=== PATIENT | female | born 1945 | race Caucasian/White ===

== ENCOUNTER 2017-06-26 10:42 | Emergency (ER) | payer BC ==
[~2017-06-26] VITALS: Ht 162.6 cm; Wt 83.6 kg
[~2017-06-26 10:42] MED LIST: ADVIN25/60 INH; CETI-41 PO; CHOL400C7 PO; FURO-85 PO; GLC/500 PO; GLIP-197 PO; IPRA1AER2 INH; LEVO25TA5 PO; LORA-741 PO; MELO7.5T5 PO; PRLSR20 PO; SACC250C11 PO; SITA100T3 PO; TRAM-10 PO
[2017-06-26 11:00] VITALS: TEMP 36.7; Ht 162.6 cm; Wt 83.6 kg
[2017-06-26] MEDS ORDERED: DULA1INJ SQ (11:34)
[2017-06-26] MEDS ORDERED: MAGN400T6 PO (11:34)
[2017-06-26] MEDS ORDERED: PROPARACAINE HCL 0.5% OP SOLN 15 ML BTL ONE (11:54)
[2017-06-26] MEDS ORDERED: OXYC1TAB3 PO (12:51)
[2017-06-26] MEDS ORDERED: CLXOPO OP (12:51)
[2017-06-26 13:07] VITALS: BP 148/79; PULSE 86; O2SAT 96
--- NOTE | 2017-06-26 19:10 | EMERGENCY ROOM VISIT NOTE ---
ED Visit Note First contact with patient: 11:47 Chief Complaint: Left eye pain. History of Present Illness: Ms. Mauricio is a 71-year-old white female who ambulates into the ED accompanied by her son complaining of left eye pain. 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 And in early May of this year had a corneal scraping performed by Dr. Basilio. Patient reports that she is on a special eyedrop medication that allows her eyes to stay well-hydrated that she is supposed to use every night in addition she uses a humidifier in her bedroom during sleep. She does report last evening she forgot to use her eyedrops and her humidifier rather out of water. Additionally she reports that she had some nasal congestion yesterday and she took a pseudoephedrine. Patient reports when she awoke from sleep today she felt a tearing sensation over the left eye. Since that time she has been having severe pain within the left eye. She describes her discomfort as a burning sensation. She rates her discomfort 8/10. Her pain is nonradiating. Her pain worsens with blinking and light exposure. She has not identified any alleviating factors related to the pain. She reports she has taken some Vicodin from an old prescription and had no relief of her discomfort. Associated with her discomfort she reports that she is noted a slight blackish haze around objects that she is looking at, she had a short-lived episode of double vision in the left eye, she has had left eye tearing and light sensitivity. She denies fevers, chills, sweats any recent direct trauma to the eye, headache , vomiting, flashing lights, drawing curtains. Review of Systems: As noted above in history of present illness. At least body systems were reviewed and found to be negative as noted above. Past Medical History: As previously noted, diabetes, hypothyroidism, arrhythmias , asthma, pneumonia, kidney stones. Current Medications: Medications Dose Route/Sig Max Daily Dose Days Date Category Mag-Ox (Magnesium Oxide) 400 Mg Tab Unknown Dose PO DAILY 06/26/17 Reported Trulicity (Dulaglutide) 0.75 Mg/0.5 Ml Inj 0.5 Mg SQ WK 06/26/17 Reported Ativan (Lorazepam) 0.5 Mg Tab 0.5 Mg PO Q6H PRN 03/17/16 Reported Prilosec (Omeprazole) 20 Mg Capcr 20 Mg PO QAM 03/17/16 Reported Probiotic (Saccharomyces Boulardii) Unknown Strength Cap Unknown Dose PO QAM 03/17/16 Reported Advair Diskus 250/50 60 Dose (Fluticasone Prop/Salmeterol) Unknown Strength Aerp 1 Puff INH BID PRN 11/18/15 Reported Combivent Respimat (Ipratropium-Albuterol) 1 Aer Aer 1 Puffs INH UD PRN 11/18/15 Reported Glipizide Er (Glipizide) 5 Mg Tab 1 Tab PO BID 90 09/19/15 Reported Levothyroxine Sodium 25 Mcg Tab 1 Tab PO QAM 90 09/19/15 Reported Januvia (Sitagliptin Phosphate) 100 Mg Tab 100 Mg PO QAM 09/19/15 Reported Glucophage (Metformin Hcl) 500 Mg Tab 500 Mg PO DAILY 09/19/15 Reported Allergies to Medications: Patient denies. Social History: Patient is not employed; she feels safe in her home environment ; she denies tobacco use. Physical Examination: Vital Signs: Date Time Temp Pulse Resp B/P (MAP) Pulse Ox O2 Delivery O2 Flow Rate FiO2 06/26/17 13:07 86 18 148/79 96 06/26/17 11:00 36.7 106 22 157/84 95 Room Air GENERAL: 71-year-old female in moderate distress due to pain, nontoxic-appearing , afebrile and hemodynamically stable. NEUROLOGICAL: Awake, alert and oriented to person, place and time. Answering questions appropriately and following commands. Normal gait. Good hand eye coordination. SKIN: Warm, dry and pink. No soft tissue eruptions or trauma noted. HEENT: Atraumatic and normocephalic. PERRLA. EOMI without nystagmus. No foreign bodies noted under the eyelids are embedded in the cornea. The anterior chamber is clear. On funduscopic examination with staining patient has a large corneal abrasion over the medial aspect of the eye. It is also noted with the slit lamp examination patient has a portion of her cornea that is free moving. Sclera mildly injected on the left. Conjunctiva pink with drainage of clear tears. Visual acuity: Right 70/20 with correction, left 20/ 70 with correction. ED Course: Patient is assessed as noted above. Patient's medication list was reviewed. Alcaine was used to anesthetize the eyes for examination. Patient's case was reviewed with Dr. Stark; he independently assessed the patient we agreed on diagnostic approach, treatment, disposition and plan. Patient was educated about today's findings and instructed on her treatment plan ; she verbalizes understanding and agreement with this plan. Clinical Impression: Left corneal abrasion. Disposition: Patient discharged home in stable condition accompanied by her son ; prior to departure she was reassessed and subjectively reported she was feeling better and rated her discomfort 05/11 Plan: Patient was encouraged to continue her current medications as prescribed. Patient was prescribed OxyIR and instructed on its use; her name was checked in the state database and no red flags were noted and she was given appropriate narcotic precautions. Patient was prescribed Ciloxan ophthalmic ointment and instructed on its use. Patient was encouraged to contact Dr. Goldman in the morning and informed him of today's ED visit and request follow-up care and treatment. Patient was encouraged to return the ED for worsening/uncontrolled pain, headaches, fevers, vomiting, worsenings visual changes or any new/concerning symptoms.
== END 2017-06-26 13:08 | disposition home or self-care (01) ==
LOC: C.EDB 10:43 → C.EDD 13:08
DX: S05.02XA Injury of conjunctiva and corneal abrasion without foreign body, left eye, initial encounter (principal); X58.XXXA Exposure to other specified factors, initial encounter; H18.59 Other hereditary corneal dystrophies; E11.9 Type 2 diabetes mellitus without complications; E03.9 Hypothyroidism, unspecified; J45.909 Unspecified asthma, uncomplicated; I49.9 Cardiac arrhythmia, unspecified; Z87.442 Personal history of urinary calculi

== ENCOUNTER → 2017-09-21 | Outpatient (CLI) | payer BC ==
[~2017-09-21] MED LIST changes: -CETI-41 PO; -CHOL400C7 PO; +DULA1INJ SQ; -FURO-85 PO; +MAGN400T6 PO; -MELO7.5T5 PO; +OXYC1TAB3 PO; -TRAM-10 PO
--- NOTE | 2017-09-21 08:50 | DIAGNOSTIC IMAGING REPORT ---
KUB HISTORY: Follow-up study in a patient with history of left-sided renal calculi N20.0 [id number] COMPARISON: [facility] 04/06/2016. FINDINGS: The bowel gas pattern is non-obstructive. Moderate stool volume throughout the left hemicolon, rectum and sigmoid. Cholecystectomy clips noted. There is no organomegaly. Renal shadows, notably the left renal shadow is partially obscured by bowel gas. There is a suggested 3 mm calculus projecting over the interpolar left kidney. No ureteral calculi identified. Calcifications of the pelvis suggest phleboliths. No pneumoperitoneum or pneumatosis. No fracture. Degenerative changes of the lumbar spine, hips and pelvis. IMPRESSION: 1. Renal shadows are partially obscured by bowel gas. There is a suggested 3 mm calculus of the interpolar left kidney. No ureteral calculi identified. 2. Moderate stool volume about the left hemicolon, rectum and sigmoid. 3. Nonobstructive bowel gas pattern. 4. Prior cholecystectomy. Electronically signed by: Vishnu Campos M.D. 09/21/2017 8:49 AM Dictated Date/Time: 09/21/2017 8:47 AM
--- NOTE | 2017-09-21 10:26 | DIAGNOSTIC IMAGING REPORT ---
RENAL ULTRASOUND CLINICAL HISTORY: Nephrolithiasis. COMPARISON STUDY: KUB April 06, [address] of the abdomen and pelvis September 15, 2015. TECHNIQUE: Sonography of the kidneys and the urinary bladder was performed. FINDINGS: Incidental note is made of fatty infiltration of the liver. There is no hydronephrosis. The right kidney measures 10.7 cm in maximal dimension and the left measures 10.8 cm. Note is made of a 4 mm left renal calculus. There is mild left renal cortical thinning. Neither ureteral jet was identified. Bladder is suboptimally assessed due to underdistention. IMPRESSION: 1. No hydronephrosis. 2. 4 mm left renal calculus. Electronically signed by: Nirmal Garcia M.D. 09/21/2017 10:25 AM Dictated Date/Time: 09/21/2017 10:24 AM
== END | disposition home or self-care (01) ==
LOC: C.ULTR 08:22
PROVIDERS: ATTEND Urology
DX: N20.0 Calculus of kidney (principal)

== ENCOUNTER → 2017-12-19 | Day surgery (SDC) | payer BC ==
[2017-12-13 13:29] VITALS: Ht 163.8 cm; Wt 84.1 kg
[~2017-12-19] VITALS: Ht 163.8 cm; Wt 84.1 kg
[~2017-12-19] MED LIST changes: +500ML BSS 0.3ML EPI 1:1000PF IRRIG ONE; +ACETAMINOPHEN 325 MG TAB PO PRN; +AMVISC PLUS 0.8ML SYRINGE INT OCU ONE; +ATROPINE SULFATE 0.1 MG/ML 5ML SYR IV PRN; +BRIMONIDINE TART 0.2% OP SOLN PER DROP CHARGE ONE; +BSS FLUSH ONE; +DOXY100C76 PO; +ENDOCOAT 0.85ML SYRINGE INT OCU ONE; +EpHEDrine SULFATE INJ 50 MG/ML AMP IV PRN; +EpINEphrine INJ 1MG/ML AMP 1 MG/ML AMP ONE; -GLIP-197 PO; +GLIP1TAB61 PO; +LACTATED RINGER'S 1000ML 500 ML IV SCH; +LIDOCAINE 4% OP SOLN DROP CHARGE ONE; +LIDOCAINE 4% OP SOLN DROP CHARGE OPR SCH; +LIDOCAINE HCL 1% MPF 2 ML VIAL ONE; -MAGN400T6 PO; +MIDAZOLAM HCL 1 MG/ML 2ML VIAL ONE; +MOXIFLOXACIN OPH SOLN PER DROP CHARGE ONE; +OMEP-334 PO; -OXYC1TAB3 PO; +POVIDONE-IODINE OP SOLN 30 ML BTL ONE; -PRLSR20 PO; +PROPARACAINE 0.5% OP SOLN PER DROP CHARGE OPR SCH; +TOBRAMYCIN/DEXAMETHASONE OPH OINT PER APPLN CHARGE ONE
--- NOTE | 2017-12-19 08:44 | History & Physical Bridge - SC ---
H&P Re-Evaluation Bridge Note: I have examined the patient, reviewed the History & Physical and in the interval since the performance of the History & Physical I have noted the following changes of clinical significance: No changes noted
[2017-12-19] MEDS: PHENYLEPHRINE HCL 2.5% OP SOLN PER DROP CHARGE OPR SCH ×2 (08:57→09:09)
[2017-12-19] MEDS: TROPICAMIDE 1% OP SOLN PER DROP CHARGE OPR SCH ×2 (08:58→09:10)
[2017-12-19] MEDS: CYCLOPENTOLATE HCL 1% OP SOLN PER DROP CHARGE OPR SCH ×2 (08:59→09:11)
[2017-12-19] MEDS: KETOROLAC 0.5% OP SOLN PER DROP CHARGE OPR SCH ×2 (09:00→09:12)
[2017-12-19] MEDS: MOXIFLOXACIN OPH SOLN PER DROP CHARGE OPR SCH ×2 (09:01→09:13)
--- NOTE | 2017-12-19 09:47 | [facility] Operative Report ---
Operative Report Operative Date Dec 19, 2017. Pre-Operative Diagnosis Cataract Right Eye Post-Operative Diagnosis Same as Pre op Procedure(s) Performed Right Cataract Phacoemulsification With Intraocular Lens Implant Surgeon Dr. Basilio Ruby On Rails Web Developer Surgeon(s) None Estimated Blood Loss 0ml Findings cataract right eye Specimens None Drains None Anesthesia Type MAC Complication(s) none Disposition no Recovery Room / PACU Indications decreased vision right eye Description of Procedure After informed consent was obtained in the holding area the patient was wheeled back to the operating room where cardiac monitoring leads and oxygen by nasal cannula was administered by Anesthesia. Gentle IV sedation was given, and the patient's right eye was prepped and draped in usual sterile fashion. A wire lid speculum was placed into the right eye and the operating microscope was swung into position. Using 0.12 forceps and a Supersharp blade a paracentesis port was made 2 o'clock hours away from the 9 o'clock position of the patient's right eye. 1% non-preserved Lidocaine was then injected into the anterior chamber for anesthesia. A 2.0 mm keratotome blade was then used to make a shelved clear corneal incision at the 9 o'clock position of the right eye. Amvisc was injected into the anterior chamber and a cystotome and Utrata forceps were used to perform a curvilinear capsulorrhexis. BSS on a hydrodissection cannula was used to hydrodissect the lens nucleus away from the capsular bag. The phacoemulsification handpiece was then used in a stop and chop fashion to remove the lens nucleus. The irrigation and aspiration handpiece was then used to remove the residual cortical material. Amvisc was injected into the capsular bag and anterior chamber and a Bausch [employer] Lomb MX60E 27.5 Diopter intraocular lens was injected into the capsular bag. Irrigation and aspiration handpiece was used to remove the residual viscoelastic material. The wounds were hydrated and noted to be watertight. The wire lid speculum was removed from the eye. Vigamox, Brimonidine, and TobraDex ointment were placed on the eye and it was shielded. It should be noted that EndoCoat was used extensively during the case to protect the cornea endothelium. DISPOSITION: The patient tolerated the procedure well and was wheeled to the post anesthesia care unit in stable condition. I attest to the content of the Intraoperative Record and any orders documented therein. Any exceptions are noted below. I attest to the content of the Intraoperative Record and any orders documented therein. Any exceptions are noted below.
--- NOTE | 2017-12-19 09:49 | Discharge Instructions-SurgCtr ---
Discharge Instructions Date of Service Dec 19, 2017. Visit Reason for Visit: Right Cataract Discharge Discharge Diagnosis / Problem: cataract right eye Discharge Goals Goal(s): Improve function Activity Recommendations Activity Limitations: per Instructions/Follow-up section Lifting Limitations: no more than 5 pounds Anesthesia . Post Anesthesia Instructions: If you have had General Anesthesia or IV Sedation: * Do not drive today. * Resume driving when surgeon permits. * Do not make important decisions or sign legal documents today. * Call surgeon for: 1. Temperature elevations greater than 101 degrees F. 2. Uncontrollable pain. 3. Excessive bleeding. 4. Persistent nausea and vomiting. 5. Medication intolerance (nausea, vomiting or rash). * For nausea and vomiting use only clear liquids such as: tea, soda, bouillon until nausea subsides, then gradually increase diet as tolerated. * If you have any concerns or questions, call your surgeon's office. If physician is unavailable and it is an emergency, call 911 or go to the nearest emergency room. . Instructions / Follow-Up Instructions / Follow-Up ACTIVITY RECOMMENDATIONS: * Light activities * You may walk outside, read, watch television. * Mild irritation and blurred vision are common for the first few days, redness around the white part of the eye is common. MEDICATIONS: Resume previous medications unless instructed otherwise by your surgeon. Eye drops (today and tomorrow): Gatifloxacin - one drop in operative eye every 2 hours while awake Prednisolone 1% - one drop in operative eye every 2 hours while awake Bromfenac - one drop in operative eye once daily SPECIAL CARE INSTRUCTIONS: * If any problems or concerns, please call Dr. Basilio's office at . * Keep plastic shield taped over eye to sleep at night. * Keep plastic shield taped over eye except to administer eye drops. * Keep plastic shield on until office visit the following day. FOLLOW UP VISIT: Follow-up with Dr. Basilio in the [place] office as scheduled. If not already scheduled, please call the office at . Diet Recommendations Home Diet: resume previous diet Procedures Procedures Performed: Right Cataract Phacoemulsification With Intraocular Lens Implant Pending Studies Studies pending at discharge: no Medical Emergencies . Who to Call and When: Medical Emergencies: If at any time you feel your situation is an emergency, please call 911 immediately. . Non-Emergent Contact Non-Emergency issues call your: Php Mysql Web Developer . . "Provider Documentation" section prepared by Praful Basilio. .
[2017-12-19 09:52] VITALS: TEMP 36.4
[2017-12-19 10:14] VITALS: BP 124/77; PULSE 84; O2SAT 94
--- NOTE | 2017-12-19 10:19 | Anesthesia Progress Nt - [facility] ---
Anesthesia Post Op Note Date & Time Dec 19, 2017 at 10:19 Vital Signs Pain Intensity: 0 Vital Signs Past 12 Hours Date Time Temp Pulse Resp B/P (MAP) Pulse Ox O2 Delivery O2 Flow Rate FiO2 12/19/17 10:14 84 16 124/77 (93) 94 Room Air 12/19/17 09:52 36.4 83 12 134/75 (94) 94 Room Air 12/19/17 08:31 36.9 80 18 142/82 (102) 94 Room Air Notes Mental Status: alert / awake / arousable, participated in evaluation Nausea / Vomiting: adequately controlled Pain: adequately controlled Airway Patency, RR, SpO2: stable & adequate BP & HR: stable & adequate Hydration State: stable & adequate Anesthetic Complications: no major complications apparent
== END | disposition home or self-care (01) ==
LOC: X.SURG 08:20
PROVIDERS: ATTEND Ophthalmology
DX: H25.11 Age-related nuclear cataract, right eye (principal); K21.9 Gastro-esophageal reflux disease without esophagitis; E11.9 Type 2 diabetes mellitus without complications; E66.9 Obesity, unspecified; Z68.31 Body mass index [BMI] 31.0-31.9, adult; Z90.710 Acquired absence of both cervix and uterus; Z90.49 Acquired absence of other specified parts of digestive tract

== ENCOUNTER 2018-12-29 15:20 | Observation (INO) ==
[~2018-12-29 15:20] MED LIST changes: -500ML BSS 0.3ML EPI 1:1000PF IRRIG ONE; -ACETAMINOPHEN 325 MG TAB PO PRN; -ADVIN25/60 INH; -AMVISC PLUS 0.8ML SYRINGE INT OCU ONE; -ATROPINE SULFATE 0.1 MG/ML 5ML SYR IV PRN; -BRIMONIDINE TART 0.2% OP SOLN PER DROP CHARGE ONE; -BSS FLUSH ONE; -DOXY100C76 PO; -DULA1INJ SQ; -ENDOCOAT 0.85ML SYRINGE INT OCU ONE; -EpHEDrine SULFATE INJ 50 MG/ML AMP IV PRN; -EpINEphrine INJ 1MG/ML AMP 1 MG/ML AMP ONE; -GLC/500 PO; -GLIP1TAB61 PO; -IPRA1AER2 INH; -LACTATED RINGER'S 1000ML 500 ML IV SCH; -LEVO25TA5 PO; -LIDOCAINE 4% OP SOLN DROP CHARGE ONE; -LIDOCAINE 4% OP SOLN DROP CHARGE OPR SCH; -LIDOCAINE HCL 1% MPF 2 ML VIAL ONE; -LORA-741 PO; -MIDAZOLAM HCL 1 MG/ML 2ML VIAL ONE; -MOXIFLOXACIN OPH SOLN PER DROP CHARGE ONE; -OMEP-334 PO; +OPTIRAY 320 125ml IV PRN; -POVIDONE-IODINE OP SOLN 30 ML BTL ONE; -PROPARACAINE 0.5% OP SOLN PER DROP CHARGE OPR SCH; -SACC250C11 PO; -SITA100T3 PO; -TOBRAMYCIN/DEXAMETHASONE OPH OINT PER APPLN CHARGE ONE
[2018-12-29] MEDS ORDERED: LORazepam 2 MG/4 ML VIAL ONE (15:30)
[2018-12-29] MEDS ORDERED: SODIUM CHLORIDE 0.9% 1000ML 1,000 ML IV SCH (15:30)
--- NOTE | 2018-12-29 15:35 | CT Scan Report ---
CT head/brain wo con CT DOSE: HISTORY: Mental status change Stroke evaluation TECHNIQUE: Multiaxial CT images of the head were performed without the use of intravenous contrast. A dose lowering technique was utilized adhering to the principles of ALARA. Comparison: None. Findings: Moderate fluid within the sphenoid sinus. The calvarium and skull base are intact. The vent ricles and sulci are within normal limits. There is no mass, hematoma, midline shift, or acute infarc t. Age-related atrophy and chronic small vessel change Impression: No acute intracranial abnormality. Age-related atrophy and chronic small vessel change. Sphenoid sinu sitis. The above report was generated using voice recognition software. It may contain grammatical, syntax or spelling errors. Electronically signed by: Destin Sen M.D. 12/29/2018 3:34 PM
--- NOTE | 2018-12-29 15:37 | CT Scan Report ---
CT angio head w con HISTORY: Mental status change cva TECHNIQUE: Multiaxial CT angiography of the head was performed IV contrast: 50 cc Maximum intensit y projection images were also obtained. A dose lowering technique was utilized adhering to the princ iplsarah of MAJO. COMPARISON: None. FINDINGS: There is no mass, hematoma, midline shift, or acute infarct. Visualized intracranial general internist al carotid arteries, distal vertebral arteries, and basilar artery are widely patent. There is no sig nificant stenosis, occlusion, or aneurysm seen within the bilateral ACAs, MCAs, or fiberglass boat assembly supervisor. IMPRESSION: No significant stenosis, occlusion, or aneurysm within the pala of [place]. The above report was generated using voice recognition software. It may contain grammatical, syntax or spelling errors. Electronically signed by: Destin Sen M.D. 12/29/2018 3:36 PM
--- NOTE | 2018-12-29 15:41 | CT Scan Report ---
CT angio neck with con CLINICAL HISTORY: 73 years-old Female presenting with cva. TECHNIQUE: Multidetector CT angiography of the neck was performed after the administration of intrave nous contrast. 3-D volumetric and/or maximum intensity projection (MIP) images were subsequently dot nstructed for review. IV contrast: 119 mL of Optiray 320. One or more dose lowering techniques were u sed consistent with the principles of ALARA (as low as reasonably achievable), including automatic ex posure control, mA or kV adjustment to individual patient size, and/or use of iterative reconstructio n. Stenosis measurements were based on NASCET-like criteria (distal lumen diameter as the denominator for stenosis measurement). COMPARISON: None. CT DOSE (mGy.cm): The estimated cumulative dose is 1142.72. FINDINGS: Director Of Aviation topogram: Unremarkable. Aortic arch: Atherosclerosis of the three-vessel aortic arch with patent origins of the branch vessel s. Innominate artery: Patent. Right subclavian artery: Patent. Right common carotid artery: Patent. Right internal and external carotid arteries: Calcified atherosclerotic plaque at the carotid bifurca tion predominantly affecting the origin the proximal course of the right internal carotid artery. No significant resulting stenosis. External carotid artery widely patent. Left common carotid artery: Patent. Left internal and external carotid arteries: Left degree of calcified atherosclerotic plaque at the c arotid bifurcation and origin and proximal course of the internal carotid artery without evidence of narrowing. External carotid artery also widely patent. Left subclavian artery: Patent. Vertebral arteries: Codominant vertebral arteries. Origins and courses of the bilateral vertebral art eries patent. Other: Limited intracranial evaluation within normal limits. Mucosal thickening in the sphenoid sinus . Soft tissues of the neck within normal limits. Degenerative changes of the cervical spine. Lung api dave clear. IMPRESSION: 1. Atherosclerosis without evidence of dissection, focal vessel occlusion, or significant stenosis o f the cervical arteries. Electronically signed by: Hugo Reynolds M.D. 12/29/2018 3:39 PM
[2018-12-29] MEDS ORDERED: LABETALOL HCL IV 5 MG/ML 20ML IV STA ×2 (15:47→16:09)
[2018-12-29 15:48] LABS: Basophils # (auto) 0.03 K/uL (0-0.2); Basophils % (auto) 0.3 %; Eosinophils # (auto) 0.36 K/uL (0-0.5); Hematocrit (blood only) 36.5 % (37-47); Hemoglobin 12.4 g/dL (12.0-16.0); Immature Granulocytes # (auto) 0.03 K/uL (0.00-0.02); Immature Granulocytes % (auto) 0.3 %; Mean Corpuscular Hemoglobin 30.4 pg (25-34); Mean Corpuscular Volume 89.5 fL (80-100); Mean Platelet Volume 9.9 fL (7.4-10.4); Monocytes % (auto) 6.7 %; Neutrophils # (auto) 4.53 K/uL (1.4-6.5); Neutrophils % (auto) 50.7 %; Platelet Count 227 K/uL (130-400); RDW Coefficient of Variation 13.3 % (11.5-14.5); RDW Standard Deviation 43.6 fL (36.4-46.3); Red Blood Count 4.08 M/uL (4.2-5.4); White Blood Count 8.95 K/uL (4.8-10.8)
[2018-12-29 15:51] LABS: iSTAT Creatinine 0.7 mg/dl (0.6-1.3); iSTAT Hemoglobin 11.6 g/dl (12.0-16.0); iSTAT Ionized Calcium 1.1 mmol/l (1.12-1.32); iSTAT Potassium 3.6 mEq/L (3.3-5.0)
--- NOTE | 2018-12-29 15:51 | XRay Report ---
XR chest 1V portable CLINICAL HISTORY: cva mental status change COMPARISON STUDY: 02/27/2018 FINDINGS: The bones soft tissues and hemidiaphragms are normal. The cardiomediastinal silhouette is n ormal. The lungs are clear. The pulmonary vasculature is normal. IMPRESSION: Negative chest. The above report was generated using voice recognition software. It may contain grammatical, syntax or spelling errors. Electronically signed by: Destin Sen M.D. 12/29/2018 3:49 PM
[2018-12-29] MEDS ORDERED: TPA for Stroke IV STA (15:55)
[2018-12-29 15:59] LABS: INR 1.1 (0.9-1.1); Partial Thromboplastin Time 26.5 Seconds (21.0-31.0); Prothrombin Time 11.2 Seconds (9.0-12.0)
[2018-12-29 16:05] LABS: Appearance Urine Clear (Clear); Bilirubin Urine Negative (Negative); Blood Urine Negative (Negative); Color Urine Yellow; Glucose Urine UA Negative (Negative); Ketones Urine Negative (Negative); Leukocyte Esterase Urine Negative (Negative); Nitrite Urine Negative (Negative); Protein Urine Negative (Negative); Specific Gravity Urine 1.014 (1.000-1.030); Urobilinogen Urine Negative (Negative)
[2018-12-29] MEDS ORDERED: ALTEPLASE BOLUS IV ONE (16:05)
[2018-12-29] MEDS ORDERED: RECOMBINANT IV ONE (16:06)
[2018-12-29] MEDS ORDERED: ALTEPLASE IV ONE (16:06)
[2018-12-29] MEDS ORDERED: PRIMARY PLUMSET, PE LINED TUBING, 113 IN, NON-DEHP (2260-0500) IV ONE (16:06)
[2018-12-29 16:22] LABS: Alanine Aminotransferase 16 U/L (12-78); Albumin Level 3.2 gm/dl (3.4-5.0); Aspartate Aminotransferase 16 U/L (15-37); BUN Creatinine Ratio 13.5 (10-20); Blood Urea Nitrogen 12 mg/dl (7-18); Calcium 8.7 mg/dl (8.5-10.1); Carbon Dioxide 25 mmol/L (21-32); Chloride 107 mmol/L (98-107); Creatinine Clr Calc Pharmacy 60.3 ml/min; Est GFR (African American) 76.6; Est GFR (Non-African American) 66.1; Glucose 161 mg/dl (70-99); Magnesium 1.8 mg/dl (1.8-2.4); Potassium 3.6 mmol/L (3.5-5.1); Sodium 139 mmol/L (136-145)
[2018-12-29 16:26] LABS: Albumin Globulin Ratio 0.9 (0.9-2); Alkaline Phosphatase 80 U/L (45-117); Bilirubin,Total 0.5 mg/dl (0.2-1); Globulin 3.5 gm/dl (2.5-4.0); Total Protein 6.7 gm/dl (6.4-8.2); Troponin I < 0.015 ng/ml (0-0.045)
--- NOTE | 2018-12-29 16:49 | Emergency Department Note ---
Entered by Shani Lloyd acting as a scribe for Steve Hines DO History of Present Illness General Chief complaint: Stroke Alert Stated complaint: STROKE ALERT Time Seen by Provider: 12/29/18 15:32 Source: patient and family History of Present Illness Onset (ago): hour(s) 2 Location: head Pain Consistency: + other (episode) Quality: + other (stroke alert) Associated symptoms: + denies other symptoms (abdominal pain, acting unusual), + weakness (right sided) and + other (difficulty speaking, head feeling numb, shaking, difficulty seeing); no headaches The patient is a 73 year old female who presents to the Emergency Room with complaints of an episode of stroke alert symptoms starting 2 hours ago. The patients son states that this afternoon he was on the phone with his mother for about an hour. He states that hung up with her around 1330 and at the time everything was normal. He reports that he got on a conference call and at 1354 she called home back. He states that that time she was speaking slowly. He reports the he couldnt understand what she was saying and it made sense, but it took her a long time to comprehend and respond. He reports that he immediately called 911. He notes that in the time they were not on the phone, she had called her uncle and had noticed herself repeating herself on the phone with him. He notes that she currently seems out of it. He reports that she lives alone and takes care of herself. He states that she even drove her granddaughters laptop to school to her this morning and was fine. The patient complains of her head feeling numb, right sided weakness, shaking, and difficulty seeing. The patients son notes that within the last 8 months, the patient had a halter monitor on for several day. He denies anything being found from it and the p atient having any cardiac history. He denies the patient having any complaints and acting unusual the last few days. The patient denies a headache and abdominal pain. Home Medications Home Medications Medication Instructions Recorded Confirmed Type Combivent Respimat 1 puff INHALATION QID PRN 03/02/18 12/29/18 History Januvia 100 mg PO QAM 03/02/18 12/29/18 History Probiotic 1 cap PO QAM 03/02/18 12/29/18 History Trulicity 1 dose SUBCUT WK 03/02/18 12/29/18 History acetaminophen 1 - 2 tab PO Q6H PRN 03/02/18 12/29/18 History lorazepam [Ativan] 0.5 mg PO Q6H PRN 03/02/18 12/29/18 History omeprazole 40 mg PO QAM 03/02/18 12/29/18 History glipizide [Glucotrol] 5 mg PO DAILY 12/29/18 12/29/18 History ibuprofen 400 - 600 mg PO TID PRN 12/29/18 12/29/18 History propylene glycol [Systane Complete] 1 drp OPHTHALMIC (EYE) BID PRN 12/29/18 12/29/18 History ranitidine HCl [Zantac] 150 mg PO BID PRN 12/29/18 12/29/18 History sodium chloride [Kerrie 128] 1 applic OPB HS 12/29/18 12/29/18 History Allergies Allergy/AdvReac Type Severity Reaction Status Date / Time No Known Allergies Allergy Unverified 12/29/18 17:25 Past Med/Surg History Medical History Anxiety Bronchitis INHALER USED WITH BRONCHITIS Bulging disc NO CURRENT PROBLEMS Diabetes mellitus, type 2 Endometriosis Fatty liver GERD (gastroesophageal reflux disease) Hypothyroidism Kidney stones Osteoarthritis Sciatica Sepsis RELATED TO KIDNEY STONES Tachycardia "CAUSED BY MEDICATION" NO LONGER A PROBLEM Surgical History History of appendectomy History of bilateral tubal ligation History of cardiac cath DONE 2/2 + STRESS TEST, NO SIGNIFICANT CAD PER CATH History of cataract surgery RT/LEFT History of cholecystectomy History of colonoscopy History of cystoscopy WITH STENT INSERTIONS History of dilatation and curettage History of esophagogastroduodenoscopy (EGD) History of hysterectomy History of lithotripsy History of repair of rotator cuff RT History of tooth extraction Family History Grandmother Family history of diabetes mellitus Social History Preferred Language: Guamanian Communication Ability: Effective Visual Impairment: No Limitations Cancer Program Coordinator Required: No Beliefs That Will Affect Care: None marital status: / Current Living Situation: Alone current occupational status: retired Feels Safe at Home: Yes Smoking Status: Never smoker Second Hand Exposure: No ; Hx Alcohol Use: No Hx Substance Use: No Review of Systems See HPI for pertinent positives & negatives. and A total of 10 systems reviewed and were otherwise negative Physical Exam Vital Signs Vital Signs - 24 hr 12/29/18 15:33 12/29/18 15:40 12/29/18 15:46 Temperature 36.7 C Temperature Source Oral Sepsis Recent Fever Within 48 Hours No Sepsis New/Unexplained Change in Mental Status No Sepsis Action Taken by Nursing No Action Required Pulse Rate 94 H 91 H 94 H Pulse Rate from SpO2 Sensor 94 H Pulse Rhythm Regular Pulse Strength Normal Respiratory Rate 24 18 24 Respiratory Effort / Characteristics Non-Labored Respiratory Depth Normal Respiratory Pattern Regular Blood Pressure 124/103 H 211/135 H Blood Pressure Mean 110 160 Pulse Oximetry 97 97 Oxygen Delivery Method Room Air 12/29/18 15:56 12/29/18 16:01 12/29/18 16:06 Temperature Temperature Source Sepsis Recent Fever Within 48 Hours Sepsis New/Unexplained Change in Mental Status Sepsis Action Taken by Nursing Pulse Rate 97 H 112 H 100 H Pulse Rate from SpO2 Sensor 98 H 102 H 101 H Pulse Rhythm Pulse Strength Respiratory Rate 20 21 19 Respiratory Effort / Characteristics Respiratory Depth Respiratory Pattern Blood Pressure 211/106 H 182/116 H 192/116 H Blood Pressure Mean 141 138 141 Pulse Oximetry 94 96 92 Oxygen Delivery Method 12/29/18 16:11 12/29/18 16:14 12/29/18 16:15 Temperature Temperature Source Sepsis Recent Fever Within 48 Hours Sepsis New/Unexplained Change in Mental Status Sepsis Action Taken by Nursing Pulse Rate 98 H 108 H 92 H Pulse Rate from SpO2 Sensor 95 H 101 H 86 Pulse Rhythm Pulse Strength Respiratory Rate 19 16 23 Respiratory Effort / Characteristics Respiratory Depth Respiratory Pattern Blood Pressure 202/140 H 198/116 H 191/116 H Blood Pressure Mean 160 143 141 Pulse Oximetry 92 95 95 Oxygen Delivery Method 12/29/18 16:19 12/29/18 16:20 12/29/18 16:25 Temperature Temperature Source Sepsis Recent Fever Within 48 Hours Sepsis New/Unexplained Change in Mental Status Sepsis Action Taken by Nursing Pulse Rate 90 85 88 Pulse Rate from SpO2 Sensor 88 85 88 Pulse Rhythm Pulse Strength Respiratory Rate 16 24 23 Respiratory Effort / Characteristics Respiratory Depth Respiratory Pattern Blood Pressure 183/131 H 171/98 H 182/100 H Blood Pressure Mean 148 122 127 Pulse Oximetry 91 95 91 Oxygen Delivery Method 12/29/18 16:31 12/29/18 16:35 12/29/18 16:40 Temperature Temperature Source Sepsis Recent Fever Within 48 Hours Sepsis New/Unexplained Change in Mental Status Sepsis Action Taken by Nursing Pulse Rate 86 90 92 H Pulse Rate from SpO2 Sensor 85 86 93 H Pulse Rhythm Pulse Strength Respiratory Rate 19 16 16 Respiratory Effort / Characteristics Respiratory Depth Respiratory Pattern Blood Pressure 143/108 H 143/84 H 174/97 H Blood Pressure Mean 119 103 122 Pulse Oximetry 91 91 95 Oxygen Delivery Method 12/29/18 16:45 12/29/18 17:00 12/29/18 17:05 Temperature Temperature Source Sepsis Recent Fever Within 48 Hours Sepsis New/Unexplained Change in Mental Status Sepsis Action Taken by Nursing Pulse Rate 86 81 Pulse Rate from SpO2 Sensor 86 81 Pulse Rhythm Pulse Strength Respiratory Rate 18 16 Respiratory Effort / Characteristics Respiratory Depth Respiratory Pattern Blood Pressure 173/107 H 151/91 H 153/85 H Blood Pressure Mean 129 111 107 Pulse Oximetry 95 92 Oxygen Delivery Method 12/29/18 17:10 12/29/18 17:15 Temperature Temperature Source Sepsis Recent Fever Within 48 Hours Sepsis New/Unexplained Change in Mental Status Sepsis Action Taken by Nursing Pulse Rate 83 84 Pulse Rate from SpO2 Sensor 82 86 Pulse Rhythm Pulse Strength Respiratory Rate 21 13 Respiratory Effort / Characteristics Respiratory Depth Respiratory Pattern Blood Pressure 167/107 H 156/91 H Blood Pressure Mean 127 112 Pulse Oximetry 94 93 Oxygen Delivery Method GENERAL: Patient is awake and alert. She is somewhat anxious appearing. She is looking around the room. She follows commands slowly. EYES: The conjunctivae are clear. The pupils are round and reactive. EARS, NOSE, MOUTH AND THROAT: The nose is without any evidence of any deformity. Mucous membranes are moist tongue is midline NECK: The neck is nontender and supple. RESPIRATORY: Normal respiratory effort is noted there is no evidence of wheezing rhonchi or rales CARDIOVASCULAR: Regular rate and rhythm noted there no murmurs rubs or gallops normal S1 normal S2 GASTROINTESTINAL: The abdomen is soft. Bowel sounds are present in all quadrants. Abdomen is nontender MUSCULOSKELETAL/EXTREMITIES: There is no evidence of gross deformity full range of motion is noted in the hips and shoulders SKIN: There is no obvious evidence of any rash. Trace pedal edema was noted bilaterally. NEUROLOGIC: Patient is awake and alert. She does look around the room. She an swers questions slowly and her speech is pressured. There is no facial droop noted. Patient has a tremor in her right upper extremity. The patient is able to hold each leg off the bed for 5 seconds. There is no significant drift. Patient does have some diminished card assembler strength in the right compared to the left. NIH stroke scale score of 6. Course 1522: Past medical records reviewed. The patient was evaluated in room B1. The patient was immediately sent to CT. 1531: The patient returned fro CT. A complete history and physical exam was performed. 1543: I discussed the patient's case with Dr. Christo Tomas Neurology. She will evaluate the patient via the telestroke. 1554: Dr. Wallace is currently evaluating the patient on the telestroke. 1613: I discussed the patient's case with Dr. Wallace again. She recommends no TPA at this time as it seems her symptoms are resolving. She does recommends admission for further testing, including an MRI of the brain. 1617: I reevaluated the patient and updated her and her family on her test results. I discussed the treatment plan with them. They verbally agree and understand. 1620: I discussed the patient's case with [facility]ushil [facility] at this time. She would like an MRI of the patient done to determine the next course of action. She will evaluate the patient for further management. 1645: Nursing staff called and thought the patient was having difficulty spe aking again. I am ordering a second CT at this time. 1718: I reevaluated the patient and her symptoms are improving. She is speaking clearly now. She states "I still don't feel right." She is going to MRI soon. Consultations Consultation #1: I discussed the patient's case with Dr. Christo Tomas Neurology. She will evaluate the patient via the telestroke. Time: 15:43 Consultation #2: I discussed the patient's case with Dr. Wallace again. She recommends no TPA at this time as it seems her symptoms are resolving. She does recommends admission for further testing, including an MRI of the brain. Time: 16:13 Consultation #3: I discussed the patient's case with Dr. Sushil [facility] at this time. She would like an MRI of the patient done to determine the next course of action. She will evaluate the patient for further management. Time: 16:20 Administered Medications Sodium Chloride (Nss 1000ml) 1,000 mls @ 50 mls/hr IV .Q20H RIKKI Stop: 01/28/19 15:29 Last Admin: 12/29/18 15:55 Dose: 50 mls/hr Documented by: [id number] Ioversol (Optiray 320 125ml) 119 ml IV ONCE PRN PRN Reason: Interaction Checking Stop: 01/02/19 15:19 Last Admin: 12/29/18 15:21 Dose: 119 ml Documented by: [id number] Discontinued Medications Alteplase, Recombinant (Activase For Stroke) 1 ea IV NOW STA; Protocol Stop: 12/29/18 15:56 Last Admin: 12/29/18 16:24 Dose: Not Given Documented by: [id number] Levetiracetam 1,000 mg/ (Dextrose) 110 mls @ 440 mls/hr IV NOW STA Stop: 12/29/18 15:46 Last Infusion: 12/29/18 16:25 Dose: 0 mls/hr Documented by: [id number] Admin: 12/29/18 15:55 Dose: 440 mls/hr Documented by: [id number] Alteplase, Recombinant 6.6 mg/ (Syringe) 6.6 mls @ 6.6 mls/min IV ONCE ONE Stop: 12/29/18 16:06 Last Admin: 12/29/18 16:24 Dose: Not Given Documented by: [id number] Alteplase, Recombinant 59 mg/ (EMPTY BAG) 59 mls @ 59 mls/hr IV ONCE ONE Stop: 12/29/18 16:07 Last Admin: 12/29/18 16:24 Dose: Not Given Documented by: [id number] Lorazepam (Ativan) 1 mg in 2 mls @ 2 mls/min IV NOW STA Stop: 12/29/18 17:01 Last Admin: 12/29/18 17:16 Dose: 2 mls/min Documented by: [id number] Labetalol HCl (Normodyne) 10 mg IV NOW STA Stop: 12/29/18 15:48 Last Admin: 12/29/18 15:51 Dose: 10 mg Documented by: [id number] Cosigned by: [id number] Labetalol HCl (Normodyne) 10 mg IV NOW STA Stop: 12/29/18 16:10 Last Admin: 12/29/18 16:11 Dose: 10 mg Documented by: [id number] Cosigned by: [id number] Lorazepam (Ativan) Confirm Administered Dose 2 mg .ROUTE .STK-MED ONE Stop: 12/29/18 15:31 Last Admin: 12/29/18 16:09 Dose: Not Given Documented by: [id number] Medical Decision Making Differential Diagnosis Differential Diagnosis includes but is not limited to ischemic Stroke, hemorrhagic stroke, bells palsy, mass, neoplasm, migraine headache, seizure, subarachnoid hemorrhage, TIA, and transient global amnesia. Medical Records Attestation: I reviewed the patient's medical records. Home Medications Current Medication List: was personally reviewed by me Laboratory Data Attestation: I reviewed the patient's lab results. Result diagrams: 12/29/18 15:37 12/29/18 15:37 Lab Results 12/29/18 12/29/18 12/29/18 Range/Units 15:37 15:37 15:37 WBC 8.95 (4.8-10.8) K/uL RBC 4.08 L (4.2-5.4) M/uL Hgb 12.4 (12.0-16.0) g/dL POC Hgb (12.0-16.0) g/dl Hct 36.5 L (37-47) % POC Hct (37-47) % MCV 89.5 (80-100) fL MCH 30.4 (25-34) pg MCHC 34.0 (32-36) g/dL RDW Std Deviation 43.6 (36.4-46.3) fL RDW Coeff of Richie 13.3 (11.5-14.5) % Plt Count 227 (130-400) K/uL MPV 9.9 (7.4-10.4) fL Immature Gran % (Auto) 0.3 % Neut % (Auto) 50.7 % Lymph % (Auto) 38.0 % [place]isco[place] % (Auto) 6.7 % Eos % (Auto) 4.0 % Baso % (Auto) 0.3 % Immature Gran # (Auto) 0.03 H (0.00-0.02) K/uL Neut # (Auto) 4.53 (1.4-6.5) K/uL Lymph # (Auto) 3.40 (1.2-3.4) K/uL [place] # (Auto) 0.60 H (0.11-0.59) K/uL Eos # (Auto) 0.36 (0-0.5) K/uL Baso # (Auto) 0.03 (0-0.2) K/uL PT 11.2 (9.0-12.0) Seconds INR 1.1 (0.9-1.1) APTT 26.5 (21.0-31.0) Seconds PTT Ratio 1.0 POC Sodium (135-144) mEq/L Sodium 139 (136-145) mmol/L POC Potassium (3.3-5.0) mEq/L Potassium 3.6 (3.5-5.1) mmol/L POC Chloride (101-112) mEq/L Chloride 107 (98-107) mmol/L Carbon Dioxide 25 (21-32) mmol/L POC Total CO2 (24-31) mEq/l Anion Gap 7.0 (3-11) POC Anion Gap (16-25) mmol/L POC BUN (7-18) mg/dl BUN 12 (7-18) mg/dl Creatinine 0.86 (0.6-1.2) mg/dl POC Creatinine (0.6-1.3) mg/dl Est Cr Clr Drug Dosing 60.3 ml/min Est GFR ( Amer) 76.6 Est GFR (Non-Af Amer) 66.1 BUN/Creatinine Ratio 13.5 (10-20) Glucose 161 H (70-99) mg/dl POC Glucose (other) (70-99) mg/dl Calcium 8.7 (8.5-10.1) mg/dl POC Ioniz Calcium Manisha (1.12-1.32) mmol/l Magnesium 1.8 (1.8-2.4) mg/dl Total Bilirubin 0.5 (0.2-1) mg/dl AST 16 (15-37) U/L ALT 16 (12-78) U/L Alkaline Phosphatase 80 (45-117) U/L Troponin I < 0.015 (0-0.045) ng/ml Total Protein 6.7 (6.4-8.2) gm/dl Albumin 3.2 L (3.4-5.0) gm/dl Globulin 3.5 (2.5-4.0) gm/dl Albumin/Globulin Ratio 0.9 (0.9-2) Urine Color Urine Appearance (Clear) Urine pH (4.5-7.5) Ur Specific [place] (1.000-1.030) Urine Protein (Negative) Urine Glucose (UA) (Negative) Urine Ketones (Negative) Urine Blood (Negative) Urine Nitrite (Negative) Urine Bilirubin (Negative) Urine Urobilinogen (Negative) Ur Leukocyte Esterase (Negative) 12/29/18 12/29/18 Range/Units 15:37 15:40 WBC (4.8-10.8) K/uL RBC (4.2-5.4) M/uL Hgb (12.0-16.0) g/dL POC Hgb 11.6 L (12.0-16.0) g/dl Hct (37-47) % POC Hct 34 L (37-47) % MCV (80-100) fL MCH (25-34) pg MCHC (32-36) g/dL RDW Std Deviation (36.4-46.3) fL RDW Coeff of Richie (11.5-14.5) % Plt Count (130-400) K/uL MPV (7.4-10.4) fL Immature Gran % (Auto) % Neut % (Auto) % Lymph % (Auto) % [place]iscoe % (Auto) % Eos % (Auto) % Baso % (Auto) % Immature Gran # (Auto) (0.00-0.02) K/uL Neut # (Auto) (1.4-6.5) K/uL Lymph # (Auto) (1.2-3.4) K/uL [place]iscoe # (Auto) (0.11-0.59) K/uL Eos # (Auto) (0-0.5) K/uL Baso # (Auto) (0-0.2) K/uL PT (9.0-12.0) Seconds INR (0.9-1.1) APTT (21.0-31.0) Seconds PTT Ratio POC Sodium 138 (135-144) mEq/L Sodium (136-145) mmol/L POC Potassium 3.6 (3.3-5.0) mEq/L Potassium (3.5-5.1) mmol/L POC Chloride 102 (101-112) mEq/L Chloride (98-107) mmol/L Carbon Dioxide (21-32) mmol/L POC Total CO2 23 L (24-31) mEq/l Anion Gap (3-11) POC Anion Gap 18.0 (16-25) mmol/L POC BUN 11 (7-18) mg/dl BUN (7-18) mg/dl Creatinine (0.6-1.2) mg/dl POC Creatinine 0.7 (0.6-1.3) mg/dl Est Cr Clr Drug Dosing ml/min Est GFR ( Amer) Est GFR (Non-Af Amer) BUN/Creatinine Ratio (10-20) Glucose (70-99) mg/dl POC Glucose (other) 161 H (70-99) mg/dl Calcium (8.5-10.1) mg/dl POC Ioniz Calcium Manisha 1.10 L (1.12-1.32) mmol/l Magnesium (1.8-2.4) mg/dl Total Bilirubin (0.2-1) mg/dl AST (15-37) U/L ALT (12-78) U/L Alkaline Phosphatase (45-117) U/L Troponin I (0-0.045) ng/ml Total Protein (6.4-8.2) gm/dl Albumin (3.4-5.0) gm/dl Globulin (2.5-4.0) gm/dl Albumin/Globulin Ratio (0.9-2) Urine Color Yellow Urine Appearance Clear (Clear) Urine pH 7.0 (4.5-7.5) Ur Specific [place] 1.014 (1.000-1.030) Urine Protein Negative (Negative) Urine Glucose (UA) Negative (Negative) Urine Ketones Negative (Negative) Urine Blood Negative (Negative) Urine Nitrite Negative (Negative) Urine Bilirubin Negative (Negative) Urine Urobilinogen Negative (Negative) Ur Leukocyte Esterase Negative (Negative) Imaging Data Radiologist's Impression: Radiology results as stated below per my review and the radiologist's interpretation: XR chest 1V portable CLINICAL HISTORY: cva mental status change COMPARISON STUDY: 02/27/2018 FINDINGS: The bones soft tissues and hemidiaphragms are normal. The cardiomediastinal silhouette is normal. The lungs are clear. The pulmonary vasculature is normal. IMPRESSION: Negative chest. The above report was generated using voice recognition software. It may contain grammatical, syntax or spelling errors. Electronically signed by: Destin Sen M.D. 12/29/2018 3:[address] head/brain wo con CT DOSE: HISTORY: Mental status change Stroke evaluation TECHNIQUE: Multiaxial CT images of the head were performed without the use of intravenous contrast. A dose lowering technique was utilized adhering to the principles of ALARA. Comparison: None. Findings: Moderate fluid within the sphenoid sinus. The calvarium and skull base are intact. The ventricles and sulci are within normal limits. There is no mass, hematoma, midline shift, or acute infarct. Age-related atrophy and chronic small vessel change Impression: No acute intracranial abnormality. Age-related atrophy and chronic small vessel change. Sphenoid sinusitis. The above report was generated using voice recognition software. It may contain grammatical, syntax or spelling errors. Electronically signed by: Destin Sen M.D. 12/29/2018 3:[address] angio head w con HISTORY: Mental status change cva TECHNIQUE: Multiaxial CT angiography of the head was performed IV contrast: 50 cc Maximum intensity projection images were also obtained. A dose lowering technique was utilized adhering to the principles of ALARA. COMPARISON: None. FINDINGS: There is no mass, hematoma, midline shift, or acute infarct. Visualized intracranial internal carotid arteries, distal vertebral arteries, and basilar artery are widely patent. There is no significant stenosis, occlusion, or aneurysm seen within the bilateral ACAs, MCAs, or assistant editor. IMPRESSION: No significant stenosis, occlusion, or aneurysm within the [place]. The above report was generated using voice recognition software. It may contain grammatical, syntax or spelling errors. Electronically signed by: Destin Sen M.D. 12/29/2018 3:[address] angio neck with con CLINICAL HISTORY: 73 years-old Female presenting with cva. TECHNIQUE: Multidetector CT angiography of the neck was performed after the administration of intravenous contrast. 3-D volumetric and/or maximum intensity projection (MIP) images were subsequently reconstructed for review. IV contrast: 119 mL of Optiray 320. One or more dose lowering techniques were used consistent with the principles of ALARA (as low as reasonably achievable), including automatic exposure control, mA or kV adjustment to individual patient size, and/or use of iterative reconstruction. Stenosis measurements were based on NASCET-like criteria (distal lumen diameter as the denominator for stenosis measurement). COMPARISON: None. CT DOSE (mGy.cm): The estimated cumulative dose is 1142.72. FINDINGS: Test Driller topogram: Unremarkable. Aortic arch: Atherosclerosis of the three-vessel aortic arch with patent origins of the branch vessels. Innominate artery: Patent. Right subclavian artery: Patent. Right common carotid artery: Patent. Right internal and external carotid arteries: Calcified atherosclerotic plaque at the carotid bifurcation predominantly affecting the origin the proximal course of the right internal carotid artery. No significant resulting stenosis. External carotid artery widely patent. Left common carotid artery: Patent. Left internal and external carotid arteries: Left degree of calcified atherosclerotic plaque at the carotid bifurcation and origin and proximal course of the internal carotid artery without evidence of narrowing. External carotid artery also widely patent. Left subclavian artery: Patent. Vertebral arteries: Codominant vertebral arteries. Origins and courses of the bilateral vertebral arteries patent. Other: Limited intracranial evaluation within normal limits. Mucosal thickening in the sphenoid sinus. Soft tissues of the neck within normal limits. Degenerative changes of the cervical spine. Lung apices clear. IMPRESSION: 1. Atherosclerosis without evidence of dissection, focal vessel occlusion, or significant stenosis of the cervical arteries. Electronically signed by: Hugo Reynolds M.D. 12/29/2018 3:[address]AST CT DOSE: 537.48 mGy.cm HISTORY: Altered mental status. TECHNIQUE: Multiaxial CT images of the head were performed without the use of intravenous contrast. Automated exposure control was utilized for this study. A dose lowering technique was utilized adhering to the principles of ALARA. Comparison: Head CT 12/29/2018. Findings: Small fluid level within the left sphenoid sinus. The mastoid air cells are clear. There is residual contrast within the brain from the recent CTA. This results in suboptimal evaluation. Mild atrophic changes within the brain. Periventricular white matter hypodensity is nonspecific but suggestive of moderate microvascular ischemic change. Small hypodensity within the right basal ganglia favors an old lacunar infarct. No definite acute infarct, mass, hematoma, or midline shift. Impression: No significant change compared to the prior study. No acute intracranial abnormality. Small fluid level within the left sphenoid sinus consistent with acute sinusitis. Electronically signed by: Quan Heck M.D. 12/29/2018 4:58 PM MR BRAIN WO CONTRAST: Pending. ECG Data Attestation: I personally reviewed and interpreted this ECG as follows: Indication: weakness Rate (beats per minute): 98 Rhythm: sinus rhythm Findings: + other (poor baseline); no PAC, no PVC, no ST depression, no ST elevation, no acute ischemic change and no ectopy Blood Pressure Blood Pressure Findings: Elevated blood pressure Blood Pressure Disposition: further management by hospitalist MDM Narrative The patient is a 73-year-old female who presented to the emergency department by ambulance for a neurologic evaluation. The patient was made a stroke alert prior to arrival after the core assembly supervisor found the patient to have aphasia as well as tremors with her right upper extremity. She also appeared weak with the right upper extremity. The patient's exam continued to wax and wane while she was in the emergency department. She was evaluated by the stroke neurologist from [facility]. TPA was ordered but was not administered because the patient's quickly improving symptoms. At one point it did appear that she may have had a seizure and may have had a postictal phase. For this reason she was treated with IV Keppra. Her blood pressure initially was very high and this was treated with IV labetalol. Patient was reevaluated multiple times. She does appear to be significantly improved but is not completely at her baseline according to her family members. For this reason I discussed her case with the on-call [facility] hospitalist group. They have agreed to evaluate the patient in the emergency department for further management and disposition. The patient was reevaluated multiple times. At one point she did have some recurrence of symptoms and a repeat CAT scan was ordered. This did not reveal any acute change from initial scan and at this time MRI still pending. Impression & Plan Weakness, Hypertensive urgency, Aphasia, Episode of transient neurologic symptoms Critical Care Time Critical Care Time: Yes Total Critical Care Time: 60 I have personally spent greater than 60 minutes of critical care time in the direct management of this patient. This includes bedside care, interpretation of diagnostic studies, and testing, discussion with consultants, patient, and family members, and other required patient management activities. This 60 minutes is in excess of all separately billable procedures. Discharge Plan Visit Data Chief Complaint: Stroke Alert Stated Complaint: STROKE ALERT ED Provider: Steve Hines Discharge Problem: Weakness, Hypertensive urgency, Aphasia, Episode of transient neurologic symptoms Patient Disposition: Being Evaluated by Hospitalist Forms Stand Alone Forms: My [facility] Prescriptions Prescriptions: No Action glipizide [Glucotrol] 5 mg tablet 5 mg PO DAILY RF: 0 sodium chloride [Kerrie 128] 5 % ointment 1 applic OPB HS RF: 0 ibuprofen 200 mg Tablet 400 - 600 mg PO TID PRN (Reason: Pain) RF: 0 Systane Complete 0.6 % Drops 1 drp OPHTHALMIC (EYE) BID PRN (Reason: dryness) RF: 0 ranitidine HCl [Zantac] 150 mg tablet 150 mg PO BID PRN (Reason: Acid Reflux) RF: 0 omeprazole 40 mg Capsule,Delayed Release(Dr/Ec) 40 mg PO QAM RF: 0 lorazepam [Ativan] 0.5 mg Tablet 0.5 mg PO Q6H PRN (Reason: Anxiety) RF: 0 Januvia 100 mg Tablet 100 mg PO QAM RF: 0 Probiotic 3 billion cell Capsule 1 cap PO QAM RF: 0 Combivent Respimat 20-100 mcg/actuation Mist 1 puff INHALATION QID PRN (Reason: Shortness Of Breath) RF: 0 Trulicity 1.5 mg/0.5 mL Pen Injector 1 dose subcut WK RF: 0 acetaminophen 325 mg Capsule 1 - 2 tab PO Q6H PRN (Reason: Pain) RF: 0 Referrals Referrals: Vince Gracia [Primary Care Provider] - The scribe's documentation has been prepared under my direction and personally reviewed by me in its entirety. I confirm that the note above accurately reflects all work, treatment, procedures, and medical decision making performed by me.
--- NOTE | 2018-12-29 16:59 | CT Scan Report ---
HEAD CT NONCONTRAST CT DOSE: 537.48 mGy.cm HISTORY: Altered mental status. TECHNIQUE: Multiaxial CT images of the head were performed without the use of intravenous contrast. A utomated exposure control was utilized for this study. A dose lowering technique was utilized adheri ng to the principles of ALARA. Comparison: Head CT 12/29/2018. Findings: Small fluid level within the left sphenoid sinus. The mastoid air cells are clear. There is residual contrast within the brain from the recent CTA. This results in suboptimal evaluation. Mild atrophic changes within the brain. Periventricular white matter hypodensity is nonspecific but sugges tive of moderate microvascular ischemic change. Small hypodensity within the right basal ganglia favo rs an old lacunar infarct. No definite acute infarct, mass, hematoma, or midline shift. Impression: No significant change compared to the prior study. No acute intracranial abnormality. Small fluid lev el within the left sphenoid sinus consistent with acute sinusitis. Electronically signed by: Quan Heck M.D. 12/29/2018 4:58 PM
[2018-12-29] MEDS ORDERED: LORazepam 1 MG/2 ML VIAL IV STA (17:00)
--- NOTE | 2018-12-29 18:13 | Magnetic Resonance Report ---
MR brain wo con CLINICAL HISTORY: 73 years-old Female presenting with slurred speech, blurry vision, concern for CVA. TECHNIQUE: Multisequence, multiplanar MR imaging of the brain was performed without the use of intrav enous contrast. IV contrast: None. COMPARISON: Noncontrast CT head performed earlier today. FINDINGS: Localizer images: Unremarkable. Bone marrow signal intensity within the calvarium within normal limits. Mucosal thickening in paranas al sinuses. Normal midline sagittal structures. Proportional ventricular and sulcal prominence, likely age-relate d parenchymal volume loss. No mass effect or midline shift. No restricted diffusion or hemorrhage. Pe riventricular and subcortical white matter T2/FLAIR hyperintensity, nonspecific but likely indicative of chronic small vessel ischemic change. Old left cerebellar hemispheric infarct. No extra-axial fluid collection. T2 skull base flow voids preserved. IMPRESSION: 1. Chronic small vessel ischemic change an old left cerebellar hemispheric infarct. No acute intracr anial abnormality. Electronically signed by: Hugo Reynolds M.D. 12/29/2018 6:11 PM
[2018-12-29] MEDS ORDERED: POLYETHYLENE (MIRALAX) 17 GM PACK PO PRN (19:54)
[2018-12-29] MEDS ORDERED: GLUCOSE 10 TABS/TUBE PO PRN (19:54)
[2018-12-29] MEDS ORDERED: MAGNESIUM HYDROXIDE SUSP 30 ML UDC PO PRN (19:54)
[2018-12-29] MEDS ORDERED: IPRATROPIUM BROMIDE/ALBUTEROL respimat INH INH PRN (19:54)
[2018-12-29] MEDS ORDERED: DC ALL PREVIOUSLY ORDERED DIABETES MEDS ONE (19:54)
[2018-12-29] MEDS ORDERED: LORazepam 0.5 MG TAB PO PRN (19:54)
[2018-12-29] MEDS ORDERED: GLUCAGON FOR INJ 1 MG VIAL SQ PRN (19:54)
[2018-12-29] MEDS ORDERED: ACETAMINOPHEN 325 MG TAB PO PRN (19:54)
[2018-12-29] MEDS ORDERED: GLUCOSE 40% GEL 15 GM TUBE PO PRN (19:54)
[2018-12-29] MEDS ORDERED: DEXTROSE 50% 50 ML SYRINGE IV PRN (19:54)
[2018-12-29] MEDS ORDERED: CARBOHYDRATES FOR HYPOGLYCEMIA PO PRN (19:54)
[2018-12-29] MEDS ORDERED: ONDANSETRON INJ 2 MG/ML 2 ML VIAL IV PRN (19:54)
[2018-12-29] MEDS ORDERED: ALUMINUM/MAGNESIUM SUSP 30 ML UDC PO PRN (19:54)
[2018-12-29] MEDS ORDERED: ZOLPIDEM TARTRATE 5 MG TAB PO PRN (19:54)
--- NOTE | 2018-12-29 20:04 | History & Physical Report ---
Date of Service December 29, 2018 Assessment & Plan (1) Weakness: Admit patient to PCU on telemetry for observation Vital signs every 4 hours Neurochecks every 4 hours for 24 hours CBC CMP BMP TSH pending Venous Doppler and TTE pending Continue aspirin 325 daily DVT prophylaxis Lovenox 40 mg subcu daily For seizure activity Keppra 500 mg twice daily Patient received 1000 mg loading dose of Keppra in the ER Neurology consult pending Atorvastatin 40 mg nightly and upgrade if lipid panel elevated Lipid panel in a.m. Hemoglobin A1c Full code (2) Hypertensive urgency: Improved after patient received labetalol 10 mg IV in the ER. Patient does not take any blood pressure medication at home. Unknown reason for hypertensive urgency. Patient started on hydralazine 10 mg p.o. 4 times daily for blood pressure over 160/90. If elevated blood pressure persists start lisinopril and increase as needed to keep BP under control. Present on Admission?: Yes (3) Aphasia: As the above, improving. Patient now able to talk Present on Admission?: Yes (4) Episode of transient neurologic symptoms: Could be related to hypertensive urgency, unclear origin. Patient had stroke in the past. No signs of infection as a reason for abrupt partial seizure seizure. Present on Admission?: Yes History of Present Illness Chief Complaint: Transient ischemic attack Primary Care Provider: Vince Gracia Patient is a 73 years old female with past medical history of prior stroke, TIA, urinary tract infections and left ureteral stone who was brought by the ambulance to the emergency room with a complaint of an episode of stroke alert symptoms started at 1:30 PM today. Patient was on the phone with her son and her brother and both of them noted the patient started to have some speech issues so they called 911. Patient had difficult time to comprehend and respond to questions. At the arrival to the emergency room her symptoms resolved. Prior to that patient had a feeling of numbness and right-sided weakness and shaking and difficulty seeing on the left side. Patient had no pulse throughout monitors in the past 8 months for several days. Patient denies any cardiac history. Patient denies fever chills chest pain shortness of breath headache abdominal pain frequency urgency hemoptysis hematuria dysuria melena. The case was discussed with Dr. KIM at [place] [facility] and she evaluated patient via the tele-stroke. Dr. Wallace was consulted twice and she recommended no TPA at this time because she noted that patient's symptoms are resolving. She recommended MRI of the brain. While patient was in the MRI the case was discussed with Dr. Soheila Larry also neurologist from [facility] who also recommended MRI of the brain. Both neurologist stated that patient is outside of the 4.[address] window for TPA. Dr. Larry recommended to give patient aspirin of 325 right now and daily, start her on atorvastatin 40 mg nightly, do lipid panel, TTE, US venous Doppler. Labs were reviewed: White blood cell 8.95, hemoglobin 12.4, hematocrit 36.5, platelets 227, sodium 139, potassium 3.6, chloride 107, anion gap 7, BUN 12, creatinine 0.86, GFR 60.3, glucose 161, magnesium 1.8, Albumin 3.2. PT 11.2, INR 1.1, APTT 26.5. CT head no intracranial abnormality. Small fluid level within the left sphenoid sinus consistent with acute sinusitis. 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 No acute intracranial abnormality. Periventricular and subcortical white matter T2/flair hyperintensity, nonspecific but likely indicative of chronic small vessel ischemic changes. Results discussed with Dr. Soheila Collier from [place] and she recommended again aspirin 325 daily, atorvastatin 40 mg nightly, lipid panel, TTE, US venous Doppler. The decision was made to admit patient for transient ischemic attack at PCU on telemetry for observation. Allergies Allergy/AdvReac Type Severity Reaction Status Date / Time No Known Allergies Allergy Unverified 12/29/18 17:25 Home Medications Home Medications Medication Instructions Recorded Confirmed Type Combivent Respimat 1 puff INHALATION QID PRN 03/02/18 12/29/18 History Januvia 100 mg PO QAM 03/02/18 12/29/18 History Probiotic 1 cap PO QAM 03/02/18 12/29/18 History Trulicity 1 dose SUBCUT WK 03/02/18 12/29/18 History acetaminophen 1 - 2 tab PO Q6H PRN 03/02/18 12/29/18 History lorazepam [Ativan] 0.5 mg PO Q6H PRN 03/02/18 12/29/18 History omeprazole 40 mg PO QAM 03/02/18 12/29/18 History glipizide [Glucotrol] 5 mg PO DAILY 12/29/18 12/29/18 History ibuprofen 400 - 600 mg PO TID PRN 12/29/18 12/29/18 History propylene glycol [Systane Complete] 1 drp OPHTHALMIC (EYE) BID PRN 12/29/18 12/29/18 History ranitidine HCl [Zantac] 150 mg PO BID PRN 12/29/18 12/29/18 History sodium chloride [Kerrie 128] 1 applic OPB HS 12/29/18 12/29/18 History Past Med/Surg History Medical History Anxiety Bronchitis INHALER USED WITH BRONCHITIS Bulging disc NO CURRENT PROBLEMS Diabetes mellitus, type 2 Endometriosis Fatty liver GERD (gastroesophageal reflux disease) Hypothyroidism Kidney stones Osteoarthritis Sciatica Sepsis RELATED TO KIDNEY STONES Tachycardia "CAUSED BY MEDICATION" NO LONGER A PROBLEM Surgical History History of appendectomy History of bilateral tubal ligation History of cardiac cath DONE 2/2 + STRESS TEST, NO SIGNIFICANT CAD PER CATH History of cataract surgery RT/LEFT History of cholecystectomy History of colonoscopy History of cystoscopy WITH STENT INSERTIONS History of dilatation and curettage History of esophagogastroduodenoscopy (EGD) History of hysterectomy History of lithotripsy History of repair of rotator cuff RT History of tooth extraction Family History Grandmother Family history of diabetes mellitus Social History Preferred Language: Guatemalan Communication Ability: Effective Visual Impairment: No Limitations Wood Crafter Required: No Beliefs That Will Affect Care: None marital status: / Current Living Situation: Alone current occupational status: retired Other Information That Helps Us Care for You: No Feels Safe at Home: Yes Safety Concerns: Feels Safe At This Time Smoking Status: Never smoker Do You Dip or Chew Tobacco: No ; Second Hand Exposure: No ; Tobacco Cessation Education Requested by Patient: No Hx Alcohol Use: No Hx Substance Use: No Review of Systems Review of Systems: All systems reviewed & are unremarkable except as noted in HPI & below Physical Exam Constitutional: WD/WN, vitals as above well developed Eyes: PERRL, conjunctivae normal, anicteric sclerae ENMT: external ear and nose normal, oropharynx normal Neck: trachea midline, no thyromegaly Respiratory: normal respiratory effort, lungs clear to auscultation Cardiovascular: RRR, no murmur, no edema Rate/Rhythm: regular rhythm Heart Sounds: normal S1 and normal S2 Gastrointestinal (Abdomen): normal bowel sounds, soft, nontender, no hepatosplenomegaly Musculoskeletal: no cyanosis or clubbing, extremities motor strength 5/5 Skin: no rashes, warm and dry Neurologic: PERRL, EOMI, accommodation nl, no face palsy, no dysarthria Speech / Cognition: + abnormal speech Weakness of the right hand Psychiatric: Orientation: alert, oriented x [address] Motor Behavior: + psychomotor retardation Mood: + anxious mood Results & Data Vital Signs (Past 12 Hours) Vital Signs Temp Pulse Resp BP Pulse Ox 12/29/18 18:45 95 H 17 103/82 12/29/18 18:40 96 H 24 129/78 94 12/29/18 18:35 93 H 19 127/78 90 12/29/18 18:30 93 H 20 127/75 91 12/29/18 18:25 85 21 131/69 88 L 12/29/18 18:20 92 H 21 124/74 88 L 12/29/18 18:15 87 22 142/83 H 89 L 12/29/18 18:10 86 19 139/76 91 12/29/18 18:07 89 17 141/82 H 93 12/29/18 17:25 86 20 151/83 H 93 12/29/18 17:20 84 23 152/102 H 94 12/29/18 17:15 84 13 156/91 H 93 12/29/18 17:10 83 21 167/107 H 94 12/29/18 17:05 81 16 153/85 H 92 12/29/18 17:00 86 18 151/91 H 95 12/29/18 16:45 173/107 H 12/29/18 16:40 92 H 16 174/97 H 95 12/29/18 16:35 90 16 143/84 H 91 12/29/18 16:31 86 19 143/108 H 91 12/29/18 16:25 88 23 182/100 H 91 12/29/18 16:20 85 24 171/98 H 95 12/29/18 16:19 90 16 183/131 H 91 12/29/18 16:15 92 H 23 191/116 H 95 12/29/18 16:14 108 H 16 198/116 H 95 12/29/18 16:11 98 H 19 202/140 H 92 12/29/18 16:06 100 H 19 192/116 H 92 12/29/18 16:01 112 H 21 182/116 H 96 12/29/18 15:56 97 H 20 211/106 H 94 12/29/18 15:46 94 H 24 211/135 H 97 12/29/18 15:40 36.7 C 91 H 18 97 12/29/18 15:33 94 H 24 124/103 H Code Status & VTE Plan Code Status Full code VTE Prophylaxis Plan VTE Prophylaxis will be ordered: Yes PG Care Time/CCT Total # of Minutes Spent Total Time Spent with Patient: Total time spent is greater than 50% in coordination of care (as documented) at patient's floor/unit and/or counseling patient:
[2018-12-29] MEDS ORDERED: PHARMACY GLYCEMIC MGMT CONSULT PRN (20:06)
[2018-12-29] MEDS ORDERED: INSULIN ASPART 100 UNITS/ML 3 ML PEN SC SCH (21:00)
[2018-12-29] MEDS: ATORVASTATIN 40 MG TAB PO SCH (21:21)
[2018-12-29] MEDS: SODIUM CHLORIDE 5% (MURO) OP OINT 3.5 GM TUBE OPB SCH (21:22)
[2018-12-30] MEDS ORDERED: Nursing to Pharmacy Communication ONE (00:11)
[2018-12-30 00:23] LABS: NT Pro B Type Natriuretic Pept 131 pg/ml (0-900)
--- NOTE | 2018-12-30 05:39 | Ultrasound Report ---
US venous doppler LE CLINICAL HISTORY: 73 years-old Female presenting with slurred speech and blurry vision, stroke presen tation, clinical concern for DVT. TECHNIQUE: Real-time grayscale and color and spectral Doppler ultrasound imaging of the veins of the bilateral lower extremities was performed. Compression and augmentation were also utilized. COMPARISON: None. FINDINGS: RIGHT: Common femoral vein: Patent. Greater saphenous vein (superficial): Patent. Deep femoral vein: Patent. Femoral vein: Patent. Popliteal vein: Patent. Calf veins: Patent. LEFT: Common femoral vein: Patent. Greater saphenous vein (superficial): Patent. Deep femoral vein: Patent. Femoral vein: Patent. Popliteal vein: Patent. Calf veins: Patent. Other: None. IMPRESSION: No evidence of deep venous thrombosis. Electronically signed by: Hugo Reynolds M.D. 12/30/2018 5:38 AM
[2018-12-30 05:56] LABS: Basophils # (auto) 0.03 K/uL (0-0.2); Basophils % (auto) 0.3 %; Eosinophils % (auto) 4.8 %; Hematocrit (blood only) 37.2 % (37-47); Hemoglobin 12.3 g/dL (12.0-16.0); Immature Granulocytes # (auto) 0.03 K/uL (0.00-0.02); Immature Granulocytes % (auto) 0.3 %; Lymphocytes # (auto) 3.83 K/uL (1.2-3.4); Lymphocytes % (auto) 36.9 %; Mean Corpuscular Hemoglobin 30.1 pg (25-34); Mean Corpuscular Hgb Conc 33.1 g/dL (32-36); Mean Platelet Volume 9.9 fL (7.4-10.4); Monocytes # (auto) 0.79 K/uL (0.11-0.59); Monocytes % (auto) 7.6 %; Neutrophils % (auto) 50.1 %; Platelet Count 221 K/uL (130-400); RDW Coefficient of Variation 13.5 % (11.5-14.5); RDW Standard Deviation 44.8 fL (36.4-46.3); Red Blood Count 4.09 M/uL (4.2-5.4); White Blood Count 10.38 K/uL (4.8-10.8)
[2018-12-30] MEDS ORDERED: INSULIN ASPART 100 UNITS/ML 3 ML PEN SC SCH (06:00)
[2018-12-30 06:29] LABS: Albumin Level 3.2 gm/dl (3.4-5.0); BUN Creatinine Ratio 12.4 (10-20); Calcium 8.4 mg/dl (8.5-10.1); Creatinine Clr Calc Pharmacy 55.2 ml/min; Est GFR (African American) 70.6; Est GFR (Non-African American) 60.9; Potassium 3.2 mmol/L (3.5-5.1)
[2018-12-30 06:40] LABS: Albumin Globulin Ratio 0.9 (0.9-2); Bilirubin,Total 0.7 mg/dl (0.2-1); Globulin 3.4 gm/dl (2.5-4.0); Thyroid Stimulating Hormone 7.16 uIu/ml (0.300-4.500); Total Protein 6.6 gm/dl (6.4-8.2)
[2018-12-30 07:02] LABS: Estimated Average Glucose 171 mg/dl; Hemoglobin A1C 7.6 % (4.5-5.6)
[2018-12-30] MEDS ORDERED: levETIRAcetam 500 MG TAB PO SCH (09:00)
[2018-12-30] MEDS: ENOXAPARIN INJ 30 MG/0.3 ML SYR SQ SCH (09:20)
[2018-12-30] MEDS: LACTOBACILLUS ACIDOPHILUS (FLORANEX) TAB PO SCH (09:21)
[2018-12-30] MEDS: POTASSIUM CHLORIDE 20 MEQ TABCR PO STA ×2 (09:21→09:31)
[2018-12-30] MEDS: ASPIRIN 325 MG ECTAB PO SCH (09:21)
[2018-12-30] MEDS: INSULIN ASPART 100 UNITS/ML 3 ML PEN SC SCH ×4 (09:22→20:53)
[2018-12-30] MEDS ORDERED: POTASSIUM CHLORIDE 10 MEQ TABCR PO STA (09:32)
--- NOTE | 2018-12-30 11:29 | Neurology Consultation ---
Date of Consultation December 30, 2018 Assessment & Plan (1) Weakness: (2) Aphasia: (3) Tremor: (4) Hypertensive urgency: Patient had an episode of speech problems that seem to be more of an expressive aphasia than anything else, right-sided weakness and nonspecific tremor. She has a variable action tremor which is probably related to anxiety and not pathologic. I do not believe she had any seizure activity yesterday. She has total recall despite having bilateral tremor episodes yesterday. MRI of the brain showed no acute stroke. I cannot entirely exclude a TIA. Patient does have some old small vessel ischemic disease likely secondary to her history of diabetes. She does not have any other significant risk factors except on this hospitalization she had significant hypertension. This has improved by this morning. Patient has some right-sided weakness which is improved also. I do not see any focal central or peripheral nervous system deficits or meningeal signs. She does not have encephalopathy today. Recommendations: 1. Control blood pressure aiming for a mean arterial pressure of approximately 95-100. 2. Improve glucose control helping hemoglobin A1c of 7.6 hopefully to under 7. 3. Continue 81 milligram aspirin tablet daily for stroke/TIA prevention. There is no indication for anticoagulation. 4. Echocardiogram if not already done. 5. Continue atorvastatin 40 milligrams daily. 6. Speech, Physical, and Occupational therapy consult. Increase activity as able. 7. I see no indication to continue levetiracetam. There is no indication for an EEG at this time. Overall, I spent a total of 80 minutes with this case including review of records, review of MRI films, direct evaluation patient at bedside, and discussing the case with the patient and her son at bedside, her RN at bedside, and Dr. Downey, including differential diagnosis and treatment options. History of Present Illness Requesting Physician: The patient is a 73-year-old, who I was asked to see at the request of Dr. Judge, for neurologic consultation regarding TIA versus stroke. Attending Physician: Hue Judge MD History of Present Illness Patient has a longstanding history of type 2 diabetes but no history of cigarette smoking, heart disease or cardiac dysrhythmia or hypertension. Yesterday, in the early afternoon she was doing well and had an active normal day. Around 2 o'clock in the afternoon she had the sudden onset of speaking slowly and confused. She knew this was going. She could understand what people are same but could not get the words out right. Sometime she said gibberish. She would repeat herself at times. Again, she knew and recalled all of this. She was lightheaded and felt somewhat weak all over. She then noted that her right arm which shaky and perhaps week. The face and leg did not shake. She recalled this as well. She arrived at the emergency room on December 29 at 1533 the temperature 36.7, pulse 94 regular, respiratory 24, blood pressure 124/103, and O2 saturation 97 percent. Blood pressure remained elevated in the emergency room. She was slow and somewhat anxious. She had decreased transportation broker strength on the right and tremor in the right arm. She was given an NIH stroke scale score of 6. Tele stroke with [facility] resulted in no tPA given because her symptoms were resolving. CBC and Chem profile were unremarkable although the glucose was 161. TSH was elevated at 7.1. Because of the shaking (I cannot get a good description by previous notes) she was given a loading dose of Keppra 1 gram. She was then put on 500 milligrams twice daily. Hemoglobin A1c was 7.6. Triglycerides were elevated mildly at 169, total cholesterol was normal at 162, LDL was [address] scan of the head was unremarkable. Chest x-ray was unremarkable. CT angiography of the head and neck were unremarkable with no significant stenosis. MRI of the brain was unremarkable for acute stroke. There was old chronic small vessel ischemic disease including an old left cerebellar lacune. I reviewed these films. Today, the patient feels improved. She is tired and has a little bit of shaking but not much compared to yesterday. Last evening she had a generalized headache of a mild nature but does not have headache this morning. Her speech is improved. Allergies Allergy/AdvReac Type Severity Reaction Status Date / Time No Known Allergies Allergy Unverified 12/29/18 17:25 Home Medications Home Medications Medication Instructions Recorded Confirmed Type Combivent Respimat 1 puff INHALATION QID PRN 03/02/18 12/29/18 History Januvia 100 mg PO QAM 03/02/18 12/29/18 History Probiotic 1 cap PO QAM 03/02/18 12/29/18 History Trulicity 1 dose SUBCUT WK 03/02/18 12/29/18 History acetaminophen 1 - 2 tab PO Q6H PRN 03/02/18 12/29/18 History lorazepam [Ativan] 0.5 mg PO Q6H PRN 03/02/18 12/29/18 History omeprazole 40 mg PO QAM 03/02/18 12/29/18 History glipizide [Glucotrol] 5 mg PO DAILY 12/29/18 12/29/18 History ibuprofen 400 - 600 mg PO TID PRN 12/29/18 12/29/18 History propylene glycol [Systane Complete] 1 drp OPHTHALMIC (EYE) BID PRN 12/29/18 12/29/18 History ranitidine HCl [Zantac] 150 mg PO BID PRN 12/29/18 12/29/18 History sodium chloride [Kerrie 128] 1 applic OPB HS 12/29/18 12/29/18 History Patient History Medical History Anxiety Bronchitis INHALER USED WITH BRONCHITIS Bulging disc NO CURRENT PROBLEMS Diabetes mellitus, type 2 Endometriosis Fatty liver GERD (gastroesophageal reflux disease) Hypothyroidism Kidney stones Osteoarthritis Sciatica Sepsis RELATED TO KIDNEY STONES Tachycardia "CAUSED BY MEDICATION" NO LONGER A PROBLEM Surgical History History of appendectomy History of bilateral tubal ligation History of cardiac cath DONE 2/2 + STRESS TEST, NO SIGNIFICANT CAD PER CATH History of cataract surgery RT/LEFT History of cholecystectomy History of colonoscopy History of cystoscopy WITH STENT INSERTIONS History of dilatation and curettage History of esophagogastroduodenoscopy (EGD) History of hysterectomy History of lithotripsy History of repair of rotator cuff RT History of tooth extraction Family History Grandmother Family history of diabetes mellitus Mother , age 59 of leukemia Leukemia Father , age 48 of an [place] Myocardial infarction Social History Preferred Language: Brazilian Communication Ability: Effective Visual Impairment: No Limitations Staple Cutter Required: No Beliefs That Will Affect Care: None marital status: / Current Living Situation: Alone current occupational status: retired Other Information That Helps Us Care for You: No other: Did secretarial jobs retiring at age 60. Feels Safe at Home: Yes Safety Concerns: Feels Safe At This Time Smoking Status: Never smoker Do You Dip or Chew Tobacco: No ; Second Hand Exposure: No ; Tobacco Cessation Education Requested by Patient: No Hx Alcohol Use: No Hx Substance Use: No Review of Systems Constitutional: + fatigue; no fever and no weakness Eyes: no diplopia, no eye pain and no worsening vision Ear, Nose, Mouth, Throat: + dizziness; no ear pain, no tinnitus, no hearing loss, no snoring, no hoarseness and no dysphagia Respiratory: no cough and no dyspnea Cardiovascular: no chest pain, no palpitations and no lightheadedness Gastrointestinal: no abdominal pain, no nausea and no vomiting Genitourinary: no dysuria, no urinary frequency and no urinary incontinence Musculoskeletal: no back pain, no neck pain, no radicular pain, no joint pain and no myalgia Integumentary: no rash and no lesions Neurologic: + tremor(s) and + abnormal speech; no gait abnormality, no localized weakness, no generalized weakness, no tingling, no numbness, no abnormal movements, no headache(s), no confusion and no memory loss Psychiatric: + anxiety; no depression, no irritability, no difficulty concentrating, no confusion and no hallucinations Endocrine: + fatigue; no flushing Hematologic / Lymphatic: no easy bleeding and no easy bruising Allergy / Immunological: no urticaria and no problem reported Physical Exam Physical Exam: The patient is right-handed. The patient is awake, alert, and attentive. Speech is somewhat hesitant at times but otherwise normal without any specific aphasia or dysarthria. She can name objects, repeat phrases, and has normal spontaneous speech. Mentation and thought processes are intact, with orientation to person, place and time, and normal fund of knowledge. Attention and concentration are normal. Mood and affect are normal and appropriate. General appearance and grooming are normal. Short and long-term memory are intact. The discs are sharp with positive venous pulsations bilaterally. There are no exudates, hemorrhages, or blood vessel changes seen. Pupils are 4 mm bilaterally and reactive to light. Extraocular eye muscles are intact without nystagmus. Visual acuity and visual barker seem normal grossly to confrontation. There are no deficits to sensation in the face in all 3 distributions of the fifth cranial nerve bilaterally. Corneal reflexes are positive bilaterally. Facial strength and symmetry was normal bilaterally. Hearing seems normal to whisper and finger rub bilaterally. Palate moves well without asymmetry. There is normal sternocleidomastoid and trapezius (shoulder shrug) strength bilaterally. Tongue is midline with good strength bilaterally. Neck has a full range of motion without discomfort. There are no cervical bruits bilaterally. There are no cranial or ocular bruits. Heart is without murmur. There is a regular rhythm and rate. Cervical, thoracic, and lumbar spine are nontender to palpation. Gait is slow to initiate/hesitant but she is narrow based and stable. Stance with eyes open is reasonable and eyes closed she sways considerably. With outstretched arms there is no drift. There are no resting tremors. Patient has an irregular, variable, posture and action tremor right greater than left side. It is distractible. There is no ataxia with finger to nose testing. There is good facility in the hands. No other abnormal involuntary movements are noted. Motor strength is 5/5 diffusely in the arms bilaterally including deltoids, biceps, triceps, brachioradialis, wrist flexors and extensors, transportation broker, and intrinsic hand muscles. Motor strength is 5/5 diffusely in the legs bilaterally including hip flexors, quadriceps, hamstrings, gastrocnemius, tibialis anterior, tibialis posterior, and Peroneii muscles. Toe extensors are normal and there is good bulk in the extensor digitorum brevis muscles bilaterally. The limbs have good tone without rigidity or spasticity. There is no atrophy noted in the muscles. Muscle bulk is normal, there is no tenderness to palpation, no myotonia to percussion, and no fasciculations seen. Sensory examination is intact to touch and pin throughout all 4 limbs diffusely. Reflexes are 2/4 in the biceps, triceps, brachioradialis, quadriceps, and Achilles tendons bilaterally. There is no clonus bilaterally. Toes are downgoing with plantar stimulation bilaterally. Peripheral pulses are present and of normal quality distally in all 4 limbs. There is no peripheral edema noted in the limbs. Results & Data Vital Signs (Past 12 Hours) Vital Signs Temp Pulse Pulse Pulse Resp BP Pulse Ox 12/30/18 07:38 36.4 C L 76 17 129/77 90 12/30/18 03:53 36.7 C 81 17 118/76 91 12/30/18 00:00 81 12/29/18 23:54 36.4 C L 69 17 120/77 97 Diagnostic Findings MR brain wo con CLINICAL HISTORY: 73 years-old Female presenting with slurred speech, blurry vision, concern for CVA. TECHNIQUE: Multisequence, multiplanar MR imaging of the brain was performed without the use of intravenous contrast. IV contrast: None. COMPARISON: Noncontrast CT head performed earlier today. FINDINGS: Localizer images: Unremarkable. Bone marrow signal intensity within the calvarium within normal limits. Mucosal thickening in paranasal sinuses. Normal midline sagittal structures. Proportional ventricular and sulcal prominence, likely age-related parenchymal volume loss. No mass effect or midline shift. No restricted diffusion or hemorrhage. Periventricular and subcortical white matter T2/FLAIR hyperintensity, nonspecific but likely indicative of chronic small vessel ischemic change. Old left cerebellar hemispheric infarct. No extra-axial fluid collection. T2 skull base flow voids preserved. IMPRESSION: 1. Chronic small vessel ischemic change an old left cerebellar hemispheric infarct. No acute intracranial abnormality. Electronically signed by: Hugo Reynolds M.D. 12/29/2018 6:11 PM PG Care Time/CCT Total # of Minutes Spent Total Time Spent with Patient: Total time spent is greater than 50% in coordination of care (as documented) at patient's floor/unit and/or counseling patient:
--- NOTE | 2018-12-30 14:40 | Pharmacy Report ---
Pharmacy Glycemic Short Note 2 - Date of Service December 30, 2018 - Glycemic Short BSG Results (Last 24 hours): 12/29/18 12/29/18 12/29/18 15:37 15:37 20:38 Glucose 161 H POC Glucose 111 H POC Glucose (other) 161 H 12/30/18 12/30/18 12/30/18 05:32 07:20 11:22 Glucose 117 H POC Glucose 133 H 154 H POC Glucose (other) OUTPATIENT ANTIDIABETIC REGIMEN: * Trulicity SQ once weekly * glipizide 5 mg po daily * januvia 100 mg po daily ASSESSMENT: * 73 yr old T2DM female admitted for weakness and hypertensive urgency. * BSGs have remained at goal with small doses of bolus insulin. Will continue to hold basal insulin and titrate novolog as needed. * No change in risk factors for insulin resistance. PLAN FOR INPATIENT GLYCEMIC CONTROL: * Hold outpatient oral diabetes medications * Basal insulin * none * Bolus insulin * NovoLog per scale ACHS or Q6hrs while NPO * Goal Range: Low 120 mg/dL - High 160 mg/dL * Correction Factor: 25 mg/dL/unit * Nutritional / Prandial insulin per carb ratio of 1 unit per 9 grams CHO consumed PLAN FOR DISCHARGE: * A1c 7.6% is near goal. * May consider increasing glipizide to 10 mg po daily
--- NOTE | 2018-12-30 18:51 | Hospitalist Progress Note ---
Date of Service December 30, 2018 Assessment & Plan (1) Episode of transient neurologic symptoms: presenting symptoms felt to be due to TIA. seen by neurology, Dr Vargas. he also feels this was TIA. MRI brain w/o stroke (old L cerebellar stroke seen). Head/neck CTA w/o stenosis, etc. echo w/o thrombus. tele stable, no PAF/etc. Dr Vargas recommending aspirin once daily for secondary prevention. I cannot rule out some sort of metabolic issue/infectious issue that could have contributed to her presentation. (2) Weakness: due to TIA? echo with hyperdynamic LV - this would suggest volume depletion. did have severe diarrhea this am. cxr w/o pneumonia. u/a normal. PT, OT evals. hydrate overnight. re-eval in am. (3) Diarrhea: send c.diff send stool cx monitor hydrate w/ IVF (4) DM w/o complication type II: holding oral agents cont novolog ac/hs (5) History of stroke: as noted on MRI brain see "TIA" above (6) DVT prophylaxis: lovenox daily observe overnight possible d/c 12/31/18 Subjective patient reports 5 episodes of diarrhea this am. initially soft then turned to liquid. no recent abx use. no recent travel. no sick contacts. no abdominal pain. appetite fair today. main complaint is right knee pain - chronic; had arthroscopic knee surgery earlier this year. tele stable overnight. no focal motor weakness or speech issues. vision normal. Review of Systems Constitutional: + fatigue; no fever and no chills Respiratory: no cough and no dyspnea Cardiovascular: no chest pain Gastrointestinal: no abdominal pain, no nausea and no vomiting Physical Exam Constitutional: no acute distress, + not appropriately hydrated (looks dehydrated ) and no altered mental status ENMT: Mouth: + dry oral mucous membranes Respiratory: normal respiratory effort, lungs clear to auscultation Cardiovascular: Rate/Rhythm: regular rate and regular rhythm Heart Sounds: normal S1 and normal S2; no murmur Vessels: posterior tibial pulses present and dorsalis pedis pulses present; no JVD Extremities: no edema Gastrointestinal (Abdomen): normal bowel sounds, soft, nontender, no hepatosplenomegaly Neurologic: moves all extremities; no focal motor deficits Speech / Cognition: normal speech, no expressive aphasia, no receptive aphasia and normal cognition Psychiatric: A+Ox3, euthymic affect Results & Data Vital Signs (Past 12 Hours) Vital Signs Temp Pulse Resp BP BP Pulse Ox 12/30/18 15:30 36.6 C 71 16 114/64 93 12/30/18 11:42 36.4 C L 84 17 159/91 H 93 12/30/18 07:38 36.4 C L 76 17 129/77 90 PG Care Time/CCT Total # of Minutes Spent Total Time Spent with Patient: Total time spent is greater than 50% in coordination of care (as documented) at patient's floor/unit and/or counseling patient: (1) DM w/o complication type II Diabetes mellitus care home insulin use: without terminal operations supervisor use Qualified Code(s): E11.9 - Type 2 diabetes mellitus without complications (2) Diarrhea Diarrhea type: unspecified type Qualified Code(s): R19.7 - Diarrhea, unspecified
[2018-12-30] MEDS: SODIUM CHLORIDE 5% (MURO) OP OINT 3.5 GM TUBE OPB SCH (19:49)
[2018-12-30] MEDS: SODIUM CHLORIDE 0.9% 1000ML 1,000 ML IV SCH (19:50)
[2018-12-30] MEDS: ATORVASTATIN 40 MG TAB PO SCH (21:08)
[2018-12-31 05:58] LABS: Basophils # (auto) 0.02 K/uL (0-0.2); Basophils % (auto) 0.2 %; Eosinophils # (auto) 0.58 K/uL (0-0.5); Eosinophils % (auto) 6.6 %; Hematocrit (blood only) 36.7 % (37-47); Immature Granulocytes # (auto) 0.03 K/uL (0.00-0.02); Immature Granulocytes % (auto) 0.3 %; Lymphocytes # (auto) 3.32 K/uL (1.2-3.4); Lymphocytes % (auto) 37.9 %; Mean Corpuscular Hemoglobin 29.9 pg (25-34); Mean Corpuscular Hgb Conc 32.7 g/dL (32-36); Mean Corpuscular Volume 91.3 fL (80-100); Mean Platelet Volume 9.9 fL (7.4-10.4); Monocytes # (auto) 0.61 K/uL (0.11-0.59); Platelet Count 211 K/uL (130-400); RDW Coefficient of Variation 13.6 % (11.5-14.5); RDW Standard Deviation 44.9 fL (36.4-46.3); Red Blood Count 4.02 M/uL (4.2-5.4); White Blood Count 8.76 K/uL (4.8-10.8)
[2018-12-31 06:49] LABS: Albumin Globulin Ratio 0.9 (0.9-2); Albumin Level 3.1 gm/dl (3.4-5.0); BUN Creatinine Ratio 14.2 (10-20); Bilirubin,Total 1.1 mg/dl (0.2-1); Calcium 8.5 mg/dl (8.5-10.1); Creatinine Clr Calc Pharmacy 59.7 ml/min; Est GFR (African American) 77.7; Globulin 3.3 gm/dl (2.5-4.0); Potassium 3.7 mmol/L (3.5-5.1); Total Protein 6.4 gm/dl (6.4-8.2)
[2018-12-31] MEDS: INSULIN ASPART 100 UNITS/ML 3 ML PEN SC SCH ×2 (08:49→12:37)
[2018-12-31] MEDS: ASPIRIN 325 MG ECTAB PO SCH (08:50)
[2018-12-31] MEDS: LACTOBACILLUS ACIDOPHILUS (FLORANEX) TAB PO SCH (08:50)
[2018-12-31] MEDS: ENOXAPARIN INJ 30 MG/0.3 ML SYR SQ SCH (08:53)
--- NOTE | 2018-12-31 11:35 | Neurology Progress Note ---
Date of Service December 31, 2018 Assessment & Plan (1) Weakness: (2) Aphasia: (3) Tremor: (4) Hypertensive urgency: Patient had an episode 8-30 of speech problems that seem to be more of an expressive aphasia than anything else, right-sided weakness and nonspecific tremor. She had a variable action tremor 8-, which is probably related to anxiety and not pathologic. I do not believe she had any seizure activity 8-. She had total recall despite having bilateral tremor episodes yesterday. Today, the patient is at baseline neurologically. She has no focal signs, meningeal signs, or encephalopathy. In addition, she has no tremor or shaking/ataxia. MRI of the brain showed no acute stroke. I cannot entirely exclude a TIA. Patient does have some old small vessel ischemic disease likely secondary to her history of diabetes. She does not have any other significant risk factors except on this hospitalization she had significant hypertension. This is improved this morning. Patient had some right-sided weakness which is improved also. Recommendations: 1. Control blood pressure, as you are doing, aiming for a mean arterial pressure of approximately 95-100. 2. Improve glucose control helping hemoglobin A1c of 7.6 hopefully to under 7. 3. Continue 81 milligram aspirin tablet daily for stroke/TIA prevention. There is no indication for anticoagulation. 4. Increase activity as able. 5. Continue atorvastatin 40 milligrams daily. 6. Speech, Physical, and Occupational therapy consults 7. Keep off levetiracetam for now. There is no indication for an EEG at this time. Overall, I spent a total of 35 minutes with this case including review of record s, review of MRI films, direct evaluation patient at bedside, and discussing the case with the patient and her son at bedside, her RN at bedside, and Dr. Downey, including differential diagnosis and treatment options. Subjective Patient is tired because she did not sleep soundly last night. She is upset that she was woken up at 2 a.m. for the nurse to take her weight. She has no complaint of pain or headache, weakness or numbness, dizziness, speech, or mentation problems. Blood pressure is 114/67. CBC and Chem profile were unremarkable although glucose was 121. Echocardiogram showed ejection fraction of greater than 70 percent with moderate LVH and no shunt. Physical Exam Physical Exam: She is awake and alert. Speech is without aphasia or dysarthria. Mood and affect are normal appropriate. Thought processes are intact. She can repeat and is oriented fully. Extraocular eye muscles are intact without nystagmus. There is no facial droop. Tongue is midline. Coordination is normal in the arms. There is no tremor or ataxia today. She ordoñez s no shaking today. Strength is symmetrical in all 4 limbs. Results & Data Vital Signs (Past 12 Hours) Vital Signs Temp Pulse Pulse Resp BP Pulse Ox 12/31/18 11:10 36.7 C 93 H 18 135/74 91 12/31/18 09:00 77 12/31/18 07:29 36.6 C 73 18 114/67 90 12/31/18 02:26 36.7 C 78 18 112/71 93 12/30/18 23:32 36.9 C 86 18 122/77 91 PG Care Time/CCT Total # of Minutes Spent Total Time Spent with Patient: Total time spent is greater than 50% in coordination of care (as documented) at patient's floor/unit and/or counseling patient:
[2018-12-31] MEDS: SODIUM CHLORIDE 0.9% 1000ML 1,000 ML IV SCH (11:39)
--- NOTE | 2018-12-31 13:31 | XRay Report ---
XR chest 2V routine HISTORY: borderline hypoxia, illness; eval pneumonia COMPARISON: Chest 12/29/2018. FINDINGS: The lungs are clear. Cardiac silhouette is normal in size. No pleural effusions. No pneumot horax. IMPRESSION: No acute process. Electronically signed by: Quan Heck M.D. 12/31/2018 1:30 PM
[2018-12-31] MEDS ORDERED: DICLOFENAC SOD 1% GEL 100 GM TUBE EXT SCH (15:00)
--- NOTE | 2018-12-31 16:31 | Pharmacy Report ---
Pharmacist Stroke Counseling - Date of Service December 31, 2018 - Scope: Pharmacy has been consulted to provide medication discharge counseling for this patient admitted with transient ischemic attack as per the Pharmacist Discharge Counseling for Stroke Patients Protocol. - Medications on Discharge: Home Medications Medication Instructions Recorded Confirmed Januvia 100 mg PO QAM 03/02/18 12/29/18 Probiotic 1 cap PO QAM 03/02/18 12/29/18 Trulicity 1 dose SUBCUT WK 03/02/18 12/29/18 acetaminophen 1 - 2 tab PO Q6H PRN 03/02/18 12/29/18 lorazepam [Ativan] 0.5 mg PO Q6H PRN 03/02/18 12/29/18 omeprazole 40 mg PO QAM 03/02/18 12/29/18 Systane Complete 1 drp OPHTHALMIC (EYE) BID PRN 12/29/18 12/29/18 glipizide [Glucotrol] 5 mg PO DAILY 12/29/18 12/29/18 ranitidine HCl [Zantac] 150 mg PO BID PRN 12/29/18 12/29/18 sodium chloride [Kerrie 128] 1 applic OPB HS 12/29/18 12/29/18 New Rx's Medication Instructions Recorded aspirin 81 mg PO DAILY #90 tab 12/31/18 atorvastatin 40 mg PO QPM #30 tab 12/31/18 diclofenac sodium [Voltaren] 4 gm EXT QID #100 gm 12/31/18 - Action: The above medications, specifically ones for stroke treatment/prophylaxis, have been reviewed in detail with the patient and/or patient business office representative(s) prior to discharge. This includes indication, common adverse reactions, drug interactions, and medication administration. Medication counseling has been employed using the teach-back method to ensure understanding. - Outcome: The patient and/or patient business office representative(s) have demonstrated understanding of the medications. Please note, they are aware that the pharmacist will call them within 72 hours post-discharge to confirm that the appropriate medications are being taken and answer any further medication related questions the patient might have at that time. Contact information Individual to be contacted: Louise Mauricio Relationship to patient (if applicable): Self Phone number: [phone] Best time to call: Anytime Additional comments: * Met with patient and daughter at bedside to review medications * Explained indication, adverse effects of aspirin and atorvastatin. Patient aware to call doctor if any new problems. Explained that alternative statin or dosing can be considered. Explained that statins may have pleiotropic benefits as patient did not understand why she needed a statin if her LDL was <100 * She has knee pain for which she was using ibuprofen 800mg q6 - explained risks with NSAID's (especially since she is now on aspirin). She understands that Voltaren gel is a topical NSAID that is "safer". She agrees to stop ibuprofen * Diabetes seems fairly well controlled for her age with HbA1c at 7.6% * Patient no longer takes or has Combivent Respimat (likely ) - states this was given to her prn "years" ago for bronchitis; denies pulmonary conditions - record D/C from medication list Thank you for allowing pharmacy to be involved in the care of this patient. Please call [phone] or [phone] with any additional questions
--- NOTE | 2019-01-02 10:34 | Pharmacy Report ---
Pharmacist Post D/C Phone Note - Phone Note: Date of phone call: January 02, 2019. Individual with whom pharmacist spoke to: KAMALJIT Devi ESTRADA The following questions were reviewed during the phone call with responses listed below each: Can you tell me the medications that you are currently taking as well as when and how you take each medication? -See Table Below When have you missed any doses of your medications? - n/a What side effects are you having from your medications, specifically, the new medications you were started on? - n/a What questions do you have about your medications? - she read that statins may cause pain, see discussion below What problems are you having obtaining your medications? - none, all cheap When is your next appointment with your primary care doctor? - she is calling her PCP today to schedule an appt Additional comments: - Pt expressed her concerns with statins and their association with myopathies. I explained the risk-benefit of statins s/p stroke. I also made her aware that if she were to develop myopathies we would have some options available. Such as decr' statin dose to moderate intensity or a less lipohilic statin The patient and/or patient small business sales representative(s) were unable to be reached for a follow-up phone call within the 72 hour time frame. Discharge counseling pharmacist contact information has already been provided to the patient should questions arise. Thank you for allowing us to be involved in the care of this patient. - Home Medications: Home Medications Medication Instructions Recorded Confirmed Januvia 100 mg PO QAM 03/02/18 12/29/18 Probiotic 1 cap PO QAM 03/02/18 12/29/18 Trulicity 1 dose SUBCUT WK 03/02/18 12/29/18 acetaminophen 1 - 2 tab PO Q6H PRN 03/02/18 12/29/18 lorazepam [Ativan] 0.5 mg PO Q6H PRN 03/02/18 12/29/18 omeprazole 40 mg PO QAM 03/02/18 12/29/18 Systane Complete 1 drp OPHTHALMIC (EYE) BID PRN 12/29/18 12/29/18 glipizide [Glucotrol] 5 mg PO DAILY 12/29/18 12/29/18 ranitidine HCl [Zantac] 150 mg PO BID PRN 12/29/18 12/29/18 sodium chloride [Kerrie 128] 1 applic OPB HS 12/29/18 12/29/18 New Rx's Medication Instructions Recorded aspirin 81 mg PO DAILY #90 tab 12/31/18 atorvastatin 40 mg PO QPM #30 tab 12/31/18 diclofenac sodium [Voltaren] 4 gm EXT QID #100 gm 12/31/18
--- NOTE | 2019-01-08 05:45 | Discharge Summary ---
Date of Service date of admission - 12/29/18 date of discharge - 12/31/18 Admission HPI Per Admitting Provider Patient is a 73 years old female with past medical history of prior stroke, TIA, urinary tract infections and left ureteral stone who was brought by the ambulance to the emergency room with a complaint of an episode of stroke alert symptoms started at 1:30 PM today. Patient was on the phone with her son and her brother and both of them noted the patient started to have some speech issues so they called 911. Patient had difficult time to comprehend and respond to questions. At the arrival to the emergency room her symptoms resolved. Prior to that patient had a feeling of numbness and right-sided weakness and shaking and difficulty seeing on the left side. Patient denies any cardiac history. Patient denies fever chills chest pain shortness of breath headache abdominal pain frequency urgency hemoptysis hematuria dysuria melena. The case was discussed with Dr. KIM at [facility] and she evaluated patient via the tele-stroke. Dr. Wallace was consulted twice and she recommended no TPA at this time because she noted that patient's symptoms are resolving. She recommended MRI of the brain. Tele-stroke stated that patient is outside of the 4.5 hours window for TPA. Labs were reviewed: White blood cell 8.95, hemoglobin 12.4, hematocrit 36.5, platelets 227, sodium 139, potassium 3.6, chloride 107, anion gap 7, BUN 12, creatinine 0.86, GFR 60.3, glucose 161, magnesium 1.8, Albumin 3.2. PT 11.2, INR 1.1, APTT 26.5. CT head no intracranial abnormality. Small fluid level within the left sphenoid sinus consistent with acute sinusitis. 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 No acute intracranial abnormality. Periventricular and subcortical white matter T2/flair hyperintensity, nonspecific but likely indicative of chronic small vessel ischemic changes. Principal Diagnosis TIA Discharge Exam Constitutional well developed, well nourished and + obese; no acute distress and no altered mental status Respiratory normal respiratory effort, lungs clear to auscultation Cardiovascular Rate/Rhythm: regular rate and regular rhythm Heart Sounds: normal S1 and normal S2; no murmur Vessels: posterior tibial pulses present and dorsalis pedis pulses present; no JVD Extremities: no edema Gastrointestinal (Abdomen) normal bowel sounds, soft, nontender, no hepatosplenomegaly Neurologic moves all extremities; no focal motor deficits Speech / Cognition: normal speech, no expressive aphasia, no receptive aphasia and normal cognition Psychiatric A+Ox3, euthymic affect Discharge Data Allergies Allergy/AdvReac Type Severity Reaction Status Date / Time No Known Allergies Allergy Unverified 12/29/18 17:25 Consultations Neurology - Samir Vargas MD PT, OT, speech Ordered Studies 1. MRI brain - IMPRESSION: 1. Chronic small vessel ischemic change an old left cerebellar hemispheric infarct. No acute intracranial abnormality. 2. echocardiogram - * hyperdynamic LV - EF >70% * no PFO/shunt * normal valve function * moderate LVH 3. CTA head/neck - largely normal; no stenotic lesion or aneurysm. 4. CT head x 2 - no acute process. 5. b/l LE venous dopplers negative for DVT. Hospital Course (1) Episode of transient neurologic symptoms: presenting symptoms were felt to be due to TIA. seen by neurology, Dr Vargas, of [facility]. he also felt this was a TIA. MRI brain w/o stroke (old L cerebellar stroke seen only). Head/neck CTA w/o stenosis, etc. echo w/o thrombus. tele stable, no PAF/etc noted while hospitalized. Dr Vargas recommending aspirin once daily for secondary stroke/TIA prevention. I cannot rule out some sort of metabolic issue/infectious issue that could have contributed to her presentation (dehydration - see below). In addition to aspirin the patient was started on high-intensity statin agent - lipitor 40mg daily. LDL was 86. Seen by PT/OT/speech - cleared for home. (2) Weakness: likely due to TIA. echo with hyperdynamic LV - this would suggest volume depletion. did have severe diarrhea on the AM of hospital day #2. cxr w/o pneumonia. u/a normal. received gentle hydration and she felt better with such. thus, mild volume depletion could have contributed to her presentation. underwent PT/OT evals - cleared for home. (3) Diarrhea: transient, occurred on hospital day #2. stools quickly normalized. patient reports that since she had her cholecystectomy in the past she gets periodic diarrhea depending on her diet. she could be having bile acid diarrhea. I encouraged her to follow a lowfat diet and to speak with her PCP about the possibility of a bile acid sequestrant. (4) DM w/o complication type II: will continue her oral agents at discharge a1c was 7.6% during this stay (5) History of stroke: as noted on MRI brain see "TIA" above Total Time Total Time Spent Total Time Spent (In Minutes): 40 Total Time Includes: Examination of the Patient, Discharge Planning, Medication Reconciliation and Communication With Other Providers Discharge Plan Discharge Items Patient Disposition: Home - Self-Care Reason For Visit: TIA Discharge Diagnosis: suspected TIA (transient ischemic attack) Discharge Goals: Diagnostic testing and Therapeutic intervention Activity: As commented below Activity Comment: take it easy for about 3 days then gradually increase activities Exercise/Sports: Gradually increase as tolerated Exercise Comment: avoid activities, however, that worsen your right knee pain Non-emergency contact: Primary Care Provider Call non-emergency contact if: you have any medication questions, your symptoms worsen, your pain is not controlled, your pain is worsening and your temperature is above 100.5 Follow-up/Referrals: Vince Gracia [Primary Care Provider] - (see Dr Gracia within 5-7 days) Diet: Carb Consistent or DM2 and Heart Healthy Addtl Provider Instructions: Your weakness, changes in speech, and question of visual changes was thought to be due to a TIA. TIA stands for "transient ischemic attack." This is a neurological symptom (or symptoms) that come on and resolve within about 24 hours. When someone has a TIA we do NOT find a new stroke on MRI of the brain. We did find an OLD stroke on the MRI, however. When the old stroke occurred cannot be determined. Dr Vargas, our neurologist, feels that this was a TIA event. Again a TIA is NOT the same thing as an actual stroke but it is a BIG risk factor for future stroke/TIA. Recommendations - 1. take a baby aspirin 81mg once daily for prevention of a future stroke/TIA. 2. take cholesterol medication - lipitor (atorvastatin) 40mg once daily. 3. for your right knee - voltaren gel 4 grams to your knee up to 4 times a day. 4. I would STOP your ibuprofen at this time especially if the voltaren gel helps the knee. Additional TIA/stroke instructions: Risk Factors for Stroke: You can reduce your chances of stroke by working with your medical provider to adopt a healthy lifestyle. Some specific ways to lower your chance of stroke are: * If you are a smoker, now is the time to stop smoking cigarettes * If you are diabetic, improve the control of your blood sugars * Avoid excessive amounts of alcohol * Control high blood pressure * Lose weight if you are overweight * Be sure to lead an active lifestyle * Eat a healthy diet low in salt, cholesterol and fat You should know about other risk factors for stroke that you are unable to control. These include: * Age 55 years or older * Male gender * Certain racial groups: , or / * Family History of Stroke, Mini stroke or Heart Attack * Sickle Cell Disease Who to Call and When: Medical Emergencies: Call 911 immediately if you experience any of the following warning signs and symptoms of Stroke: * Sudden numbness or weakness of the face, arm or leg, especially on one side of the body * Sudden confusion, trouble speaking or understanding * Sudden trouble seeing in one or both eyes * Sudden trouble walking, dizziness, loss of balance or coordination * Sudden severe headache with no cause Do not delay calling 911 if you experience any warning signs or symptoms of a stroke. Delay in seeking medical attention may affect what treatments can be given to you. . Follow-up -- see your family doctor within 1 week Prescriptions: New diclofenac sodium [Voltaren] 1 % Gel 4 gm EXT QID Qty: 100 RF: 0 atorvastatin 40 mg Tablet 40 mg PO QPM Qty: 30 RF: 5 aspirin 81 mg tablet,delayed release (DR/EC) 81 mg PO DAILY Qty: 90 RF: 3 Continued glipizide [Glucotrol] 5 mg tablet 5 mg PO DAILY RF: 0 sodium chloride [Kerrie 128] 5 % ointment 1 applic OPB HS RF: 0 Systane Complete 0.6 % Drops 1 drp OPHTHALMIC (EYE) BID PRN (Reason: dryness) RF: 0 ranitidine HCl [Zantac] 150 mg tablet 150 mg PO BID PRN (Reason: Acid Reflux) RF: 0 omeprazole 40 mg Capsule,Delayed Release(Dr/Ec) 40 mg PO QAM RF: 0 lorazepam [Ativan] 0.5 mg Tablet 0.5 mg PO Q6H PRN (Reason: Anxiety) RF: 0 Januvia 100 mg Tablet 100 mg PO QAM RF: 0 Probiotic 3 billion cell Capsule 1 cap PO QAM RF: 0 Trulicity 1.5 mg/0.5 mL Pen Injector 1 dose subcut WK RF: 0 acetaminophen 325 mg Capsule 1 - 2 tab PO Q6H PRN (Reason: Pain) RF: 0 Discontinued ibuprofen 200 mg Tablet 400 - 600 mg PO TID PRN (Reason: Pain) RF: 0 Stand-Alone Forms: [facility] Discharge Orders: Discharge Order (Routine); Ordered 12/31/18 Ordered By: Jeffy Downey Admission Data Admit Date/Time: 12/29/18 18:36 Attending Provider: Jeffy Downey Admit Provider: Hue Judge Primary Care Provider: Vince Gracia Other Providers: Hue Judge ; Nicolás Vargas III Service: Telemetry Other Interventions: Discharge Summary Assessment (RN) Last Done: 12/31/18 15:15 Pending Studies at Discharge: No Studies:: MRI brain - OLD stroke seen but NOT a new stroke. CAT scans of the circulation of the head/neck - normal, no aneurysm or narrowing of any blood vessel seen. echocardiogram - normal. chest x-rays - normal, no pneumonia. DC Date/Time DO NOT enter until pt leaves facility: 12/31/18 16:19
--- NOTE | 2019-01-16 09:36 | Coding Query ---
A supporting diagnosis is required for the test/procedure performed on this patient in order for us to be reimbursed by the patient's insurance. Please provide a supporting diagnosis for the following test/procedure listed below next to the test name along with your signature. *If there is no additional diagnosis for this patient that would support the following test/procedure please document that below next to the test/procedure. Test(s)/Procedure(s) that require a supporting diagnosis: * 70034 VENOUS DOPPLER LOWER EXT BILAT DIAGNOSIS:Slurred speech, stroke presentation, concern of DVT, rule out deep venous thrombosis DATE OF SERVICE: 12/29/18 Provider Signature: ___shelby devi Date: 01/29/2019 Thank you Jaime Wood [facility] Information Management Once completed, please kindly fax back to [phone] For questions please call [phone] ELLYN
== END 2018-12-31 16:19 | disposition home or self-care (01) ==
LOC: ED 15:20 → 2S 15:20 → SUATTDRO 18:36 → 2S 19:21

== ENCOUNTER 2023-12-21 12:51 | Observation (INO) ==
[2023-12-21] MEDS: OPTIRAY 320 125ml IV ONE (12:50)
--- NOTE | 2023-12-21 13:06 | Emergency Department Note ---
Impression & Plan Acute left-sided weakness ED Provider Note NAME: KAMALJIT ESTRADA AGE: 78 SEX: F : 1945 ARRIVES VIA: Ambulance INFORMANT: Patient, ED PROVIDER(S): Pardeep Jorge MD CHIEF COMPLAINT: Weakness MEDICAL DECISION MAKING: Patient presents due to concern for left sided weakness. Stroke alert was initiated to help facilitate imaging. IV was established and blood was obtained along with an EKG. Initial NIH of 4. Patient is not a TNK candidate as the patient has not had symptoms within the last 3 to 4-1/2 hours and symptoms may have began 3 days prior. Blood work shows a normal white count H&H and platelet count. The patient's kidney function is unremarkable. LFTs are unremarkable troponin negative. The patient did have a CT head and CT angiography of the head and neck. These are negative. Patient was ordered 324 of aspirin. I did inform the patient the patient's son of the findings. Patient was admitted to the medicine service. Discussion w/ other healthcare providers: Joselito Gunn PA-C and Dr. Cai inpatient medicine service Prior /Outside records reviewed: None Differential diagnosis: Infection, dehydration, metabolic abnormality, hypo/hyperglycemia, electrolyte imbalance, anemia, UTI, pneumonia, thyroid dysfunction among others were considered. Diagnostics, as interpreted by me: ECG: Normal sinus rhythm, rate of 87, normal intervals, normal axis no ST elevations, Q wave noted in V2. Cardiac monitoring: An order was placed for continuous cardiac monitoring. The monitor shows a rate of 82 with sinus rhythm. Patient was placed on pulse oximetry Medical decision rules: None Imaging studies: I informally interpreted the patient's CT head does not show obvious ICH with formal report to follow. HPI: Patient presents due to concern for strokelike symptoms. Last known well unclear but may have been 3 days prior. The patient reports that she had some left-sided facial pain around that time but denies any ear pain or dental pain. The patient was seen at [facility] was referred here after noting the patient did have left-sided weakness and deficits. Patient does have a prior history of CVA but without deficits. The patient does take baby aspirin but no other thinners. No falls or trauma. No head or neck pain. Patient states that she is unsure as whether or not she has got some tingling in the fingers. No chest pains or shortness of breath. Patient is accompanied by son at bedside. Patient denies any visual deficits no slurred speech or facial droop. PAST MEDICAL HISTORY: See Below PAST SURGICAL HISTORY: See Below SOCIAL HISTORY: See Below HOME MEDICATIONS: See Below ALLERGIES: See Below VITALS: See Below PHYSICAL EXAMINATION: GENERAL: NAD, non-toxic. Wearing glasses. EYE EXAM: Normal conjunctiva. PERRL, no anisocoria and EOM's grossly intact w/o pain. OROPHARYNX: Moist mucus membranes, grossly normal dentition. NECK: Trachea midline, no stridor. LUNGS: Clear to auscultation. Normal chest wall mechanics. HEART: NSR, no MRG. ABDOMEN: Abdomen soft, non-tender, no masses, no rebound or guarding. BACK: No CVA TTP. SKIN: No rashes and no bruising. UPPER EXTREMITIES: Upper extremities are grossly normal. LOWER EXTREMITIES: Grossly normal, no edema. NEURO EXAM: A&O x3, cranial nerves II-XII grossly intact, normal speech, moves all 4 extremities but with 4 out of 5 strength of the left upper extremity associated dysmetria when trying to touch [id number] of the left upper extremity, 3-5 strength the left lower extremity. No obvious sensory deficits. Past Med/Surg History Problem List (Updated 12/21/23 @ 16:39 by Pardeep Jorge MD) Acute left-sided weakness (Acute) Stroke-like symptoms Idiopathic polyneuropathy Vitamin B12 deficiency Memory loss Uric acid nephrolithiasis History of stroke DM w/o complication type II Diarrhea Tremor Weakness (Acute) Hypertensive urgency (Acute) Aphasia (Acute) Episode of transient neurologic symptoms (Acute) Left ureteral stone Encounter for pre-operative examination Sepsis UTI (urinary tract infection) Medical History Sepsis RELATED TO KIDNEY STONES Endometriosis Bulging disc NO CURRENT PROBLEMS Sciatica Osteoarthritis Kidney stones Fatty liver GERD (gastroesophageal reflux disease) Diabetes mellitus, type 2 Hypothyroidism Anxiety Tachycardia "CAUSED BY MEDICATION" NO LONGER A PROBLEM Bronchitis INHALER USED WITH BRONCHITIS Surgical History History of bilateral tubal ligation History of dilatation and curettage History of hysterectomy History of repair of rotator cuff RT History of cystoscopy WITH STENT INSERTIONS History of lithotripsy History of esophagogastroduodenoscopy (EGD) History of colonoscopy History of cholecystectomy History of appendectomy History of tooth extraction History of cataract surgery RT/LEFT History of cardiac cath DONE 2/2 + STRESS TEST, NO SIGNIFICANT CAD PER CATH Family History Grandmother Family history of diabetes mellitus Mother , age 59 of leukemia Leukemia Father , age 48 of an [place] Myocardial infarction Social History Smoking Status: Never smoker Second Hand Exposure: No; Do You Dip or Chew Tobacco: No; Hx Alcohol Use: No Hx Substance Use: No Preferred Language: Salvadorean Communication Ability: Effective Visual Impairment: No Limitations Corrugator Helper Required: No Beliefs That Will Affect Care: None marital status: / Current Living Situation: Alone current occupational status: retired other: Did [employer] jobs retiring at age 60. Feels Safe at Home: Yes Assistive Devices: Glasses Allergies Allergies Allergy/AdvReac Type Severity Reaction Status Date / Time No Known Allergies Allergy Unverified 10/09/21 11:10 Home Meds Home Medications Medication Instructions Recorded Confirmed lorazepam 0.5 mg tablet (Ativan) 0.5 mg PO Q6H PRN Anxiety 03/02/18 03/10/23 propylene glycol 0.6 % eye drops 1 drp ophthalmic (eye) BID PRN 12/29/18 03/10/23 (Systane Complete) dryness sodium chloride 5 % eye ointment 1 applic OPB HS 12/29/18 03/10/23 (Kerrie 128) aspirin 81 mg tablet,delayed 81 mg PO QAM 11/30/20 03/10/23 release (Vicente Low Dose Aspirin) cholecalciferol (vitamin D3) 25 1,000 mcg PO QAM 11/30/20 03/10/23 mcg (1,000 unit) capsule (Vitamin D3) famotidine 40 mg tablet (Pepcid) 40 mg PO QAM 11/30/20 12/21/23 albuterol sulfate 90 mcg/actuation 2 inh inhalation Q6H PRN Shortness 10/09/21 03/10/23 aerosol inhaler (Ventolin HFA) Of Breath docusate sodium 100 mg capsule 100 mg PO BID PRN Constipation 10/09/21 03/10/23 (Colace) prucalopride 2 mg tablet 2 mg PO QAM 10/09/21 12/21/23 (Motegrity) sennosides 8.6 mg tablet (Senokot) 8.6 mg PO HS PRN constipation 12/02/22 03/10/23 empagliflozin 25 mg tablet 25 mg PO QAM 12/21/23 12/21/23 (Jardiance) Previous Rx's Medication Instructions Recorded cyanocobalamin (vitamin B-12) 1,000 mcg subcut MONTHLY #3 mL 03/10/23 1,000 mcg/mL injection solution syringe with needle, safety 1 mL #3 ea 03/10/23 25 gauge x 5/8" Results & Data (ED) Vital Signs Vital Signs - 24 hr 12/21/23 12:57 12/21/23 13:16 12/21/23 13:26 Temperature 36.7 C Temperature Source Oral Pulse Rate 88 97 H Respiratory Rate 16 Respiratory Effort / Characteristics Non-Labored Spontaneous Respiratory Depth Normal Respiratory Pattern Regular Blood Pressure 154/93 H Blood Pressure Mean 113 Blood Pressure Position Lying Pulse Oximetry 94 Oxygen Delivery Method Room Air Room Air Sepsis Recent Fever Within 48 Hours No Sepsis New/Unexplained Change in Mental Status N/A Sepsis Action Taken by Nursing No Action Required Home Medications Current Medication List: was personally reviewed by me Laboratory Data Attestation: I reviewed the patient's lab results. 12/21/23 13:17 12/21/23 13:17 Lab Results 12/21/23 12/21/23 Range/Units 13:17 13:27 WBC 7.73 (4.8-10.8) K/ul RBC 4.96 (4.20-5.40) M/uL Hgb 15.3 (12.0-16.0) g/dl POC Hgb 15.3 (12.0-16.0) g/dl Hct 45.2 (37.0-47.0) % POC Hct 45 (37-47) % MCV 91.1 (80.0-100.0) fL MCH 30.8 (25.0-34.0) pg MCHC 33.8 (32.0-36.0) g/dL RDW Std Deviation 43.8 (36.4-46.3) fL RDW Coeff of Richie 13.0 (11.5-14.5) % Plt Count 245 (130-400) K/uL MPV 9.7 (9.4-12.4) fL Immature Gran % (Auto) 0.4 % Neut % (Auto) 66.0 % Lymph % (Auto) 26.1 % Morrow % (Auto) 4.7 % Eos % (Auto) 2.2 % Baso % (Auto) 0.6 % Neut # (Auto) 5.10 (1.40-6.50) K/uL Lymph # (Auto) 2.02 (1.20-3.40) K/uL Morrow # (Auto) 0.36 (0.11-0.59) K/uL Eos # (Auto) 0.17 (0.00-0.50) K/uL Baso # (Auto) 0.05 (0.00-0.20) K/uL Immature Gran # (Auto) 0.03 (0.01-0.20) K/uL Absolute Nucleated RBC 0.02 (0.00-0.12) K/uL Nucleated RBC % (auto) 0.3 % PT 10.9 (9.0-12.0) Seconds INR 1.0 (0.9-1.1) APTT 28 (21-31) Seconds PTT Ratio 1.0 POC Sodium 140 (135-144) mmol/L Sodium 138 (136-145) mmol/L POC Potassium 4.2 (3.3-5.0) mmol/L Potassium 4.2 (3.5-5.1) mmol/L POC Chloride 104 (101-112) mmol/L Chloride 104 (98-107) mmol/L Carbon Dioxide 26 (21-32) mmol/L POC Total CO2 24 (24-31) mmol/L Anion Gap 8 (3-11) POC Anion Gap 17.0 (16-25) mmol/L POC BUN 9 (7-18) mg/dl BUN 10 (6-23) mg/dl Creatinine 0.74 (0.6-1.2) mg/dl POC Creatinine 0.7 (0.6-1.3) mg/dl Est Cr Clr Drug Dosing 62.2 ml/min Est GFR ( Amer) 88.7 ml/min Est GFR (Non-Af Amer) 76.5 ml/min BUN/Creatinine Ratio 13.5 (10-20) Glucose 125 H (70-99(Fasting)) mg/dl POC Glucose (other) 123 H (70-99) mg/dl Calcium 9.5 (8.6-10.3) mg/dl POC Ioniz Calcium Manisha 1.13 (1.12-1.32) mmol/l Magnesium 2.0 (1.7-2.4) mg/dl Total Bilirubin 0.7 (0.2-1.0) mg/dl AST 32 (13-39) U/L ALT 39 (7-52) U/L Alkaline Phosphatase 86 (34-104) U/L Troponin I High Sens 4.0 (0-14) pg/ml Total Protein 7.8 (6.0-8.3) gm/dl Albumin 4.5 (3.4-5.0) gm/dl Globulin 3.3 (2.5-4.0) gm/dl Albumin/Globulin Ratio 1.4 (0.9-2) Administered Medications Discontinued Medications Acetaminophen (Acetaminophen 500 Mg Tab) 1,000 mg PO NOW STA Stop: 12/21/23 15:13 Last Admin: 12/21/23 15:43 Dose: 1,000 mg Documented By: CEF Aspirin (Aspirin Chew 324 Mg) 324 mg PO NOW STA Stop: 12/21/23 14:43 Last Admin: 12/21/23 14:46 Dose: 324 mg Documented By: CEF Atorvastatin Calcium (Atorvastatin 40 Mg Tab) 40 mg PO NOW STA Stop: 12/21/23 15:13 Last Admin: 12/21/23 15:43 Dose: 40 mg Documented By: CEF Ioversol (Optiray 320 125ml) 112 ml IV ONCE ONE Stop: 12/21/23 12:51 Last Admin: 12/21/23 12:50 Dose: 112 ml Documented By: MOE Lorazepam (Lorazepam 1 Mg/1 Ml Syr Ed Inj Use) 0.5 mg IV ONE STA Stop: 12/21/23 15:38 Last Admin: 12/21/23 15:42 Dose: 0.5 mg Documented By: CEF Imaging Data Radiologist's Impression: Head CT 12/21/23 12:46 CT SCAN OF THE BRAIN WITHOUT IV CONTRAST CLINICAL HISTORY: Neurological deficit. Strokelike symptoms. COMPARISON STUDY: CT of the brain dated 12/29/2018. MRI of the brain dated 12/29/2022. TECHNIQUE: Unenhanced axial CT scan of the brain is performed from the vertex to the skull base. A dose lowering technique was utilized adhering to the principles of ALARA. FINDINGS: Brain parenchyma: There is age-related involutional change noting moderate to advanced subcortical and periventricular microangiopathic disease. There is no hemorrhage, mass effect, or evidence of acute territorial ischemia by CT criteria. Cuellar-white matter differentiation is preserved. No extra-axial fluid collection is seen. Ventricles, sulci, cisterns: Prominent secondary to involutional change. Intracranial vasculature: There is atherosclerotic calcification of the cavernous carotid arteries. Calvarium: Unremarkable. Sinuses and mastoids: There is a 1.7 cm retention cyst in the left maxillary antrum. Mucosal thickening is seen in the sphenoid sinuses. The remaining paranasal sinuses are clear. The mastoid air cells are well pneumatized. Orbits: The bony orbits are grossly intact. There are bilateral ocular lens implants. IMPRESSION: There is no hemorrhage, mass effect, or evidence of acute territorial ischemia by CT criteria. ACT 112: Negative or not required by law. Electronically signed by: Sandoval Claire M.D. 12/21/2023 1:11 PM Head CTA 12/21/23 12:46 CT angio head w con CLINICAL HISTORY: neuro deficit, acute stroke suspected TECHNIQUE: CT angiography of the head was performed following intravenous administration of iodinated contrast. Coronal and sagittal MIPS were obtained from the axial data set and were submitted for review. Automated dose lowering techniques and/or adjustment according to patient size were utilized for this examination. All measurements were calculated based on NASCET criteria. CT DOSE: 1332.25 mGy.cm Comparison: None available at the time of this dictation. FINDINGS: CTA Head: The anterior and posterior cerebral circulations are patent. No hemodynamically significant stenosis, aneurysm, dissection, or arteriovenous malformation is shown. IMPRESSION: No occlusion, hemodynamically significant stenosis, aneurysm, dissection, or arteriovenous malformation in the major intracranial arteries. Assessment of stenosis of the internal carotid arteries is based on NASCET criteria. ACT 112: Negative or not required by law. Electronically signed by: Choco Mccarthy M.D. 12/21/2023 1:35 PM Neck CTA 12/21/23 12:46 CT ANGIOGRAM OF THE NECK CLINICAL HISTORY: Neurological deficit. Stroke like symptoms. COMPARISON STUDY: CT angiogram of the neck dated 12/29/2018. TECHNIQUE: Following the IV administration of 112 of Optiray 320, CT angiogram of the neck was performed from the aortic arch to the skull base. Images are reviewed in the axial, sagittal, and coronal planes. 3-D MIPS images are created and assessed. IV contrast was administered without complication. All measurements were calculated based on NASCET criteria. A dose lowering technique was utilized adhering to the principles of ALARA. FINDINGS: Thoracic aorta: There is atherosclerotic calcification of the thoracic aorta. Visualized portions of the thoracic aorta are normal in caliber. The aortic arch demonstrates standard 3-vessel anatomy. Right carotid arterial system: The right common carotid artery is widely patent, as are the right internal and external carotid arteries. Calcified plaque is seen in the carotid bulb and proximal ICA. Left carotid arterial system: The left common carotid artery is widely patent, as are the left internal and external carotid arteries. Calcified plaque is seen in the carotid bulb and proximal ICA. Vertebral arteries: Widely patent bilaterally and codominant. Subclavian arteries: Widely patent bilaterally. Jugular veins: Patient bilaterally. Brain parenchyma: The visualized brain parenchyma the skull base is within normal limits. Lung apices: Partially visualized upper lobe lung parenchyma appears clear. Soft tissues: The visualized pharyngeal soft tissues are normal in appearance noting angiographic phase technique. The oropharyngeal airway appears widely patent. The salivary and thyroid glands are normal in appearance. No cervical lymphadenopathy is seen. Skeletal structures: The skeletal structures are osteopenic. The visualized calvarium at the skull base appears intact. The imaged cervical spine is maintained noting multilevel spondylosis. Sinuses and mastoids: There is a 1.7 cm retention cyst in the left maxillary antrum. Trace mucosal thickening seen in the right maxillary sinus. The mastoid air cells are well pneumatized. IMPRESSION: Unremarkable CT angiogram of the neck. ACT 112: Negative or not required by law. Electronically signed by: Sandoval Claire M.D. 12/21/2023 1:16 PM Brain MRI 12/21/23 14:11 MR brain wo con CLINICAL HISTORY: left arm and leg weakness ?stroke TECHNIQUE: Multiplanar and multisequence MR images of the brain were obtained without intravenous contrast. Comparison: Comparison is made to MRI brain 12/29/2022 FINDINGS: No abnormal restricted diffusion is identified. Foci of T2 and FLAIR hyperintensity are noted in the paraventricular areas consistent with chronic small vessel ischemic disease. Ex vacuo ventriculomegaly and sulcal enlargement is noted compatible with diffuse volume loss. No mass is seen. There is no mass effect or midline shift. There is no evidence of acute intraparenchymal hemorrhage. No extra axial fluid collections are seen. The corpus callosum, pituitary gland, and cerebellar tonsils appear grossly unremarkable. Flow voids of the major intracranial arterial vessels are identified. A mucous retention cyst is in the left maxillary sinus. IMPRESSION: Chronic volume loss and age related white matter changes without evidence of acute abnormality. No evidence of infarct. ACT 112: Negative or not required by law. Electronically signed by: Choco Mccarthy M.D. 12/21/2023 4:27 PM Discharge Plan Visit Data Chief Complaint: Stroke Alert Stated Complaint: STROKE ALERT ED Provider: Pardeep Jorge Discharge Problem: Acute left-sided weakness Patient Disposition: Admitted As Inpatient Discharge Instructions Interventions: ED Discharge Assessment Last Done: 12/21/23 16:14
--- NOTE | 2023-12-21 13:13 | CT Scan Report ---
CT SCAN OF THE BRAIN WITHOUT IV CONTRAST CLINICAL HISTORY: Neurological deficit. Strokelike symptoms. COMPARISON STUDY: CT of the brain dated 12/29/2018. MRI of the brain dated 12/29/2022. TECHNIQUE: Unenhanced axial CT scan of the brain is performed from the vertex to the skull base. A do se lowering technique was utilized adhering to the principles of ALARA. FINDINGS: Brain parenchyma: There is age-related involutional change noting moderate to advanced subcortical an d periventricular microangiopathic disease. There is no hemorrhage, mass effect, or evidence of acute territorial ischemia by CT criteria. Cuellar-white matter differentiation is preserved. No extra-axial fluid collection is seen. Ventricles, sulci, cisterns: Prominent secondary to involutional change. Intracranial vasculature: There is atherosclerotic calcification of the cavernous carotid arteries. Calvarium: Unremarkable. Sinuses and mastoids: There is a 1.7 cm retention cyst in the left maxillary antrum. Mucosal thickeni ng is seen in the sphenoid sinuses. The remaining paranasal sinuses are clear. The mastoid air cells are well pneumatized. Orbits: The bony orbits are grossly intact. There are bilateral ocular lens implants. IMPRESSION: There is no hemorrhage, mass effect, or evidence of acute territorial ischemia by CT crit chai. ACT 112: Negative or not required by law. Electronically signed by: Sandoval Claire M.D. 12/21/2023 1:11 PM
--- NOTE | 2023-12-21 13:18 | CT Scan Report ---
CT ANGIOGRAM OF THE NECK CLINICAL HISTORY: Neurological deficit. Stroke like symptoms. COMPARISON STUDY: CT angiogram of the neck dated 12/29/2018. TECHNIQUE: Following the IV administration of 112 of Optiray 320, CT angiogram of the neck was perfor med from the aortic arch to the skull base. Images are reviewed in the axial, sagittal, and coronal p lanes. 3-D MIPS images are created and assessed. IV contrast was administered without complication. A ll measurements were calculated based on NASCET criteria. A dose lowering technique was utilized adh ering to the principles of ALARA. FINDINGS: Thoracic aorta: There is atherosclerotic calcification of the thoracic aorta. Visualized portions of the thoracic aorta are normal in caliber. The aortic arch demonstrates standard 3-vessel anatomy. Right carotid arterial system: The right common carotid artery is widely patent, as are the right int ernal and external carotid arteries. Calcified plaque is seen in the carotid bulb and proximal ICA. Left carotid arterial system: The left common carotid artery is widely patent, as are the left project intern al and external carotid arteries. Calcified plaque is seen in the carotid bulb and proximal ICA. Vertebral arteries: Widely patent bilaterally and codominant. Subclavian arteries: Widely patent bilaterally. Jugular veins: Patient bilaterally. Brain parenchyma: The visualized brain parenchyma the skull base is within normal limits. Lung apices: Partially visualized upper lobe lung parenchyma appears clear. Soft tissues: The visualized pharyngeal soft tissues are normal in appearance noting angiographic pha se technique. The oropharyngeal airway appears widely patent. The salivary and thyroid glands are nor mal in appearance. No cervical lymphadenopathy is seen. Skeletal structures: The skeletal structures are osteopenic. The visualized calvarium at the skull ba se appears intact. The imaged cervical spine is maintained noting multilevel spondylosis. Sinuses and mastoids: There is a 1.7 cm retention cyst in the left maxillary antrum. Trace mucosal th ickening seen in the right maxillary sinus. The mastoid air cells are well pneumatized. IMPRESSION: Unremarkable CT angiogram of the neck. ACT 112: Negative or not required by law. Electronically signed by: Sandoval Claire M.D. 12/21/2023 1:16 PM
--- NOTE | 2023-12-21 13:36 | CT Scan Report ---
CT angio head w con CLINICAL HISTORY: neuro deficit, acute stroke suspected TECHNIQUE: CT angiography of the head was performed following intravenous administration of iodinated contrast. Coronal and sagittal MIPS were obtained from the axial data set and were submitted for rev iew. Automated dose lowering techniques and/or adjustment according to patient size were utilized fo r this examination. All measurements were calculated based on NASCET criteria. CT DOSE: 1332.25 mGy.cm Comparison: None available at the time of this dictation. FINDINGS: CTA Head: The anterior and posterior cerebral circulations are patent. No hemodynamically significan t stenosis, aneurysm, dissection, or arteriovenous malformation is shown. IMPRESSION: No occlusion, hemodynamically significant stenosis, aneurysm, dissection, or arteriovenous malformati on in the major intracranial arteries. Assessment of stenosis of the internal carotid arteries is based on NASCET criteria. ACT 112: Negative or not required by law. Electronically signed by: Choco Mccarthy M.D. 12/21/2023 1:35 PM
[2023-12-21 13:38] LABS: Basophils # (auto) 0.05 K/uL (0.00-0.20); Basophils % (auto) 0.6 %; Eosinophils # (auto) 0.17 K/uL (0.00-0.50); Eosinophils % (auto) 2.2 %; Hematocrit (blood only) 45.2 % (37.0-47.0); Hemoglobin 15.3 g/dl (12.0-16.0); Immature Granulocytes # (auto) 0.03 K/uL (0.01-0.20); Immature Granulocytes % (auto) 0.4 %; Lymphocytes # (auto) 2.02 K/uL (1.20-3.40); Lymphocytes % (auto) 26.1 %; Mean Corpuscular Hemoglobin 30.8 pg (25.0-34.0); Mean Corpuscular Hgb Conc 33.8 g/dL (32.0-36.0); Mean Corpuscular Volume 91.1 fL (80.0-100.0); Mean Platelet Volume 9.7 fL (9.4-12.4); Monocytes # (auto) 0.36 K/uL (0.11-0.59); Monocytes % (auto) 4.7 %; Nucleated RBC # (auto) 0.02 K/uL (0.00-0.12); Nucleated RBC % (auto) 0.3 %; Platelet Count 245 K/uL (130-400); RDW Standard Deviation 43.8 fL (36.4-46.3); Red Blood Count 4.96 M/uL (4.20-5.40); White Blood Count 7.73 K/ul (4.8-10.8)
[2023-12-21 13:40] LABS: iSTAT Creatinine 0.7 mg/dl (0.6-1.3); iSTAT Hemoglobin 15.3 g/dl (12.0-16.0); iSTAT Ionized Calcium 1.13 mmol/l (1.12-1.32); iSTAT Potassium 4.2 mmol/L (3.3-5.0)
[2023-12-21 13:51] LABS: Albumin Globulin Ratio 1.4 (0.9-2); Albumin Level 4.5 gm/dl (3.4-5.0); BUN Creatinine Ratio 13.5 (10-20); Bilirubin,Total 0.7 mg/dl (0.2-1.0); Calcium 9.5 mg/dl (8.6-10.3); Creatinine Clr Calc Pharmacy 62.2 ml/min; Est GFR (African American) 88.7 ml/min; Est GFR (Non-African American) 76.5 ml/min; Globulin 3.3 gm/dl (2.5-4.0); Potassium 4.2 mmol/L (3.5-5.1); Total Protein 7.8 gm/dl (6.0-8.3)
[2023-12-21 14:08] LABS: Partial Thromboplastin Time 28 Seconds (21-31); Prothrombin Time 10.9 Seconds (9.0-12.0)
--- NOTE | 2023-12-21 14:35 | Electrocardiogram Report ---
Test Reason : Blood Pressure : */* mmHG Vent. Rate : 87 BPM Atrial Rate : 87 BPM P-R Int : 182 ms QRS Dur : 78 ms QT Int : 376 ms P-R-T Axes : 26 56 33 degrees QTcB Int : 452 ms Normal sinus rhythm Poor R wave progression, consider anterior FL vs. lead placement vs. LVH Abnormal ECG When compared with ECG of 09-Oct-2021 09:32, No significant change Confirmed by Osmar Morocho ([id number]) on 12/21/2023 2:34:51 PM Referred By: REFERRED SELF Confirmed By: Osmar Morocho
[2023-12-21] MEDS: ASPIRIN CHEW 324 MG PO STA (14:46)
--- NOTE | 2023-12-21 14:47 | History & Physical Report ---
Date of Service December 21, 2023 Assessment & Plan (1) Stroke-like symptoms: Plan: Admit to the PCU on telemetry Currently stable Presented to the ED from PCPs office due to concerns for weakness in the left upper and lower extremity Was made a stroke alert, CT of the head without contrast and CTAs of the head/neck were negative for acute findings Patient was given a full dose aspirin prior to admission On my evaluation the patient has significant weakness in the left upper extremity and left lower extremity compared to right, which is new for her Unsure if the intermittent shock-like pain in the left upper cheek is related to possible CVA versus another otology such as trigeminal neuralgia or early shingles Will obtain MRI of the brain without contrast now, will obtain TTE Will give 40 mg p.o. atorvastatin now, follow a.m. fasting lipid panel Will continue with patient's home 81 mg aspirin daily, if she has signs of CVA on MRI could consider dual antiplatelet therapy for Every 4 hours neurochecks, dysphagia screen, aspiration/fall precautions, PT/OT consults Will allow permissive hypertension until MRI results are back Heart healthy/DM type II diet with 2 g sodium restriction Bilateral SCDs for DVT prophylaxis for now until MRI results are back AM CBC, CMP, mag, PT/INR, fasting lipid panel, hemoglobin A1c (2) DM w/o complication type II: Plan: Monitor BSG ACHS, goal is [id number] Hold Jardiance for now Start CF of 50 and CR of 15 ACHS for now Adjust regimen as needed (3) Anxiety: Plan: Continue home as needed Ativan for now Would recommend patient's PCP consider eventual taper off of Ativan as it is not an ideal agent moving forward with her age (4) Hypothyroidism: Plan: Continue levothyroxine Plan The patient was discussed with Dr. Cai at the time of the admission History of Present Illness Chief Complaint: Stroke symptoms Primary Care Provider: Nancy Mullins MD Louise is an 78-year-old female with a past medical history significant for previous TIA, mild vascular dementia, DM type II, and idiopathic polyneuropathy who presented to the [facility] ED on 12/21/2023 from her PCPs office due to concerns for possible strokelike symptoms. Per the ED staff, the patient initially developed left facial nerve pain approximately 3 days ago. She was seen in her PCP for the symptoms this morning and was thought to have associated left-sided weakness. She was made a stroke alert on arrival. Was noted to be mildly hypertensive at 154/93, tachycardic at 97, but otherwise stable. Labs including CBC and CMP were unremarkable. CT of the head and brain without contrast and CTA of the head/neck were read as negative for acute findings. Prior to admission the patient was given a full dose aspirin. Patient was sitting in bed in no acute distress at time of exam with her son bedside, history was obtained from both. Patient states that approximately 3 days ago she started to develop intermittent shocking pain along the left cheek, just inferior to the left eye. Symptoms were exacerbated with palpation of the area. Was using Tylenol for pain with mild improvement but no resolution. States that she was looking her symptoms upon monitoring and thought could be due to trigeminal neuralgia which is why she initially scheduled her PCP appointment today. She states that after ongoing neurologic testing at the PCP office they were concerned with her left upper and lower extremity weakness which is why she was sent to the ED. Still having the intermittent left facial pain, was unsure if she felt weakness in her left side extremities or not. Denies recent changes in vision, hearing, taste, smell, paresthesias in any other body, chest pain, abdominal pain, nausea/vomiting, urinary symptoms,, lower extremity swelling, and recent trauma. She wishes to be a conditional code. She would not want CPR or defibrillation in the event of cardiac arrest. In the event of respiratory failure she would want a trial of intubation mechanical ventilation. She would want her son to make medical decisions for her if she cannot make them herself. Please refer to Dr. Cai's attestation for any changes to the treatment plan Allergies Allergy/AdvReac Type Severity Reaction Status Date / Time No Known Allergies Allergy Unverified 10/09/21 11:10 Home Medications Medication Instructions Recorded Confirmed Type lorazepam 0.5 mg tablet (Ativan) 0.5 mg PO Q6H PRN Anxiety 03/02/18 12/21/23 History propylene glycol 0.6 % eye drops 1 drp ophthalmic (eye) BID PRN 12/29/18 12/21/23 History (Systane Complete) dryness sodium chloride 5 % eye ointment 1 applic OPB HS 12/29/18 12/21/23 History (Kerrie 128) aspirin 81 mg tablet,delayed 81 mg PO QAM 11/30/20 12/21/23 History release (Vicente Low Dose Aspirin) cholecalciferol (vitamin D3) 25 1,000 mcg PO QAM 11/30/20 12/21/23 History mcg (1,000 unit) capsule (Vitamin D3) famotidine 40 mg tablet (Pepcid) 40 mg PO QAM 11/30/20 12/21/23 History albuterol sulfate 90 mcg/actuation 2 inh inhalation Q6H PRN Shortness 10/09/21 12/21/23 History aerosol inhaler (Ventolin HFA) Of Breath prucalopride 2 mg tablet 2 mg PO QAM 10/09/21 12/21/23 History (Motegrity) syringe with needle, safety 1 mL #3 ea 03/10/23 12/21/23 Rx 25 gauge x 5/8" dulaglutide 0.75 mg/0.5 mL 0.75 mg subcut WK 12/21/23 12/21/23 History subcutaneous pen injector (Trulicity) empagliflozin 25 mg tablet 25 mg PO QAM 12/21/23 12/21/23 History (Jardiance) Past Med/Surg History Problem List (Updated 12/22/23 @ 09:12 by Nicolás Vargas MD) Atypical face pain Acute left-sided weakness (Acute) Stroke-like symptoms Idiopathic polyneuropathy Vitamin B12 deficiency Memory loss Uric acid nephrolithiasis History of stroke DM w/o complication type II Diarrhea Tremor Weakness (Acute) Hypertensive urgency (Acute) Aphasia (Acute) Episode of transient neurologic symptoms (Acute) Left ureteral stone Encounter for pre-operative examination Sepsis UTI (urinary tract infection) Medical History Sepsis RELATED TO KIDNEY STONES Endometriosis Bulging disc NO CURRENT PROBLEMS Sciatica Osteoarthritis Kidney stones Fatty liver GERD (gastroesophageal reflux disease) Diabetes mellitus, type 2 Hypothyroidism Anxiety Tachycardia "CAUSED BY MEDICATION" NO LONGER A PROBLEM Bronchitis INHALER USED WITH BRONCHITIS Surgical History History of bilateral tubal ligation History of dilatation and curettage History of hysterectomy History of repair of rotator cuff RT History of cystoscopy WITH STENT INSERTIONS History of lithotripsy History of esophagogastroduodenoscopy (EGD) History of colonoscopy History of cholecystectomy History of appendectomy History of tooth extraction History of cataract surgery RT/LEFT History of cardiac cath DONE 2/2 + STRESS TEST, NO SIGNIFICANT CAD PER CATH Family History Grandmother Family history of diabetes mellitus Mother , age 59 of leukemia Leukemia Father , age 48 of an [place] Myocardial infarction Social History Smoking Status: Never smoker Second Hand Exposure: No; Do You Dip or Chew Tobacco: No; Hx Alcohol Use: No Hx Substance Use: No Preferred Language: Welsh Communication Ability: Effective Visual Impairment: No Limitations Tow Feeder Required: No Beliefs That Will Affect Care: None marital status: / Current Living Situation: Alone current occupational status: retired Other Information That Helps Us Care for You: No other: Did [employer] jobs retiring at age 60. Feels Safe at Home: Yes Safety Concerns: Feels Safe At This Time Assistive Devices: None Physical Exam Physical Exam: Physical Exam: General: In no acute distress, stated age, well-nourished, good hygiene HEENT: Normocephalic, atraumatic, no scleral icterus, pupils around round, symmetrical, and reactive to light, moist mucus membranes, trachea midline, no thyromegaly > Patient with tenderness and a shocking sensation on palpation of the left upper cheek just inferior to the left eye with mild muscle spasms > No signs of rash or vesicles in the left sclera, left side of face, or in the oropharynx Chest/Pulm: No respiratory distress, symmetrical chest expansion, clear david ath sounds throughout Cardiac: RRR, no murmurs noted Abdomen: Negative for ascites and bruising, normoactive bowel sounds, soft, non-tender to palpation throughout Musculoskeletal: Symmetrical and without signs of acute trauma, no acute trauma on exam Extremities: Radial, dorsalis pedis, and posterior tibial pulses are intact and symmetrical, no edema noted in the BL LE's Skin: Warm, dry, no rashes , lesions, or scars noted Neuro: Alert and oriented to person, place, month, year, and president, no focal defects, CN II-XII tested and intact, patient with positive pronator drift testing and cerebellar testing in the left upper extremity compared to right, patient with significant weakness in the left lower extremity with hip flexion compared to right, no tremors noted Psych: No acute distress, calm and cooperative during the exam Results & Data Results & Data Vital Signs (Past 12 Hours) Vital Signs Temp Pulse Resp BP Pulse Ox O2 Del Method 12/21/23 13:26 97 H 12/21/23 12:57 36.7 C 88 16 154/93 H 94 Room Air Laboratory Results Abnormal lab results 12/21/23 12/21/23 Range/Units 13:17 13:27 Glucose 125 H (70-99(Fasting)) mg/dl POC Glucose (other) 123 H (70-99) mg/dl Diagnostic Findings Head CT 12/21/23 12:46 CT SCAN OF THE BRAIN WITHOUT IV CONTRAST CLINICAL HISTORY: Neurological deficit. Strokelike symptoms. COMPARISON STUDY: CT of the brain dated 12/29/2018. MRI of the brain dated 12/29/2022. TECHNIQUE: Unenhanced axial CT scan of the brain is performed from the vertex to the skull base. A dose lowering technique was utilized adhering to the principles of ALARA. FINDINGS: Brain parenchyma: There is age-related involutional change noting moderate to advanced subcortical and periventricular microangiopathic disease. There is no hemorrhage, mass effect, or evidence of acute territorial ischemia by CT c riteria. Cuellar-white matter differentiation is preserved. No extra-axial fluid collection is seen. Ventricles, sulci, cisterns: Prominent secondary to involutional change. Intracranial vasculature: There is atherosclerotic calcification of the cavernous carotid arteries. Calvarium: Unremarkable. Sinuses and mastoids: There is a 1.7 cm retention cyst in the left maxillary antrum. Mucosal thickening is seen in the sphenoid sinuses. The remaining paranasal sinuses are clear. The mastoid air cells are well pneumatized. Orbits: The bony orbits are grossly intact. There are bilateral ocular lens implants. IMPRESSION: There is no hemorrhage, mass effect, or evidence of acute territorial ischemia by CT criteria. ACT 112: Negative or not required by law. Electronically signed by: Sandoval Cliare M.D. 12/21/2023 1:11 PM Head CTA 12/21/23 12:46 CT angio head w con CLINICAL HISTORY: neuro deficit, acute stroke suspected TECHNIQUE: CT angiography of the head was performed following intravenous administration of iodinated contrast. Coronal and sagittal MIPS were obtained from the axial data set and were submitted for review. Automated dose lowering techniques and/or adjustment according to patient size were utilized for this examination. All measurements were calculated based on NASCET criteria. CT DOSE: 1332.25 mGy.cm Comparison: None available at the time of this dictation. FINDINGS: CTA Head: The anterior and posterior cerebral circulations are patent. No hemodynamically significant stenosis, aneurysm, dissection, or arteriovenous malformation is shown. IMPRESSION: No occlusion, hemodynamically significant stenosis, aneurysm, dissection, or arteriovenous malformation in the major intracranial arteries. Assessment of stenosis of the internal carotid arteries is based on NASCET criteria. ACT 112: Negative or not required by law. Electronically signed by: Choco Mccarthy M.D. 12/21/2023 1:35 PM Neck CTA 12/21/23 12:46 CT ANGIOGRAM OF THE NECK CLINICAL HISTORY: Neurological deficit. Stroke like symptoms. COMPARISON STUDY: CT angiogram of the neck dated 12/29/2018. TECHNIQUE: Following the IV administration of 112 of Optiray 320, CT angiogram of the neck was performed from the aortic arch to the skull base. Images are reviewed in the axial, sagittal, and coronal planes. 3-D MIPS images are created and assessed. IV contrast was administered without complication. All measurements were calculated based on NASCET criteria. A dose lowering technique was utilized adhering to the principles of ALARA. FINDINGS: Thoracic aorta: There is atherosclerotic calcification of the thoracic aorta. Visualized portions of the thoracic aorta are normal in caliber. The aortic arch demonstrates standard 3-vessel anatomy. Right carotid arterial system: The right common carotid artery is widely patent, as are the right internal and external carotid arteries. Calcified plaque is seen in the carotid bulb and proximal ICA. Left carotid arterial system: The left common carotid artery is widely patent, as are the left internal and external carotid arteries. Calcified plaque is seen in the carotid bulb and proximal ICA. Vertebral arteries: Widely patent bilaterally and codominant. Subclavian arteries: Widely patent bilaterally. Jugular veins: Patient bilaterally. Brain parenchyma: The visualized brain parenchyma the skull base is within normal limits. Lung apices: Partially visualized upper lobe lung parenchyma appears clear. Soft tissues: The visualized pharyngeal soft tissues are normal in appearance noting angiographic phase technique. The oropharyngeal airway appears widely patent. The salivary and thyroid glands are normal in appearance. No cervical lymphadenopathy is seen. Skeletal structures: The skeletal structures are osteopenic. The visualized calvarium at the skull base appears intact. The imaged cervical spine is maintained noting multilevel spondylosis. Sinuses and mastoids: There is a 1.7 cm retention cyst in the left maxillary antrum. Trace mucosal thickening seen in the right maxillary sinus. The mastoid air cells are well pneumatized. IMPRESSION: Unremarkable CT angiogram of the neck. ACT 112: Negative or not required by law. Electronically signed by: Sandoval Claire M.D. 12/21/2023 1:16 PM ECG Additional Comments: Normal sinus rhythm Poor R wave progression, consider anterior MN vs. lead placement vs. LVH Abnormal ECG When compared with ECG of 09-Oct-2021 09:32, No significant change Confirmed by Osmar Morocho ([id number]) on 12/21/2023 2:34:51 PM Code Status & VTE Plan Code Status Conditional, see HPI VTE Prophylaxis Plan VTE Prophylaxis will be ordered: Yes Supervising Physician Co-Signing Physician Notes I personally saw and examined the patient. I verified all bella points and agree with Joselito Gunn PA-C with the following exceptions and/or additions: 78 year old female presents to the ER with left sided facial pain progressively getting worse that started 3 days. Today more persistent and severe (usually lasts for 30 seconds). Currently had 2 episodes in 45 minutes. Only noticed weakness when she went to see PCP today and was subsequently sent to the ER for evaluation. O/E HS RRR, no murmurs, Chest CTAB, Abdo SNT, EOMI intact, PERRL, reproducible left facial pain on tapping on face, otherwise CN 2-> 12 intact, significant pronator drift on left side and weakness of hip flexion 3/5, no sensation loss A/P Left sided weakness - in the absnce of stroke on MRI I am unclear what is causing this but appears definitive on exam. No history of migraines to suggest hemiplegic migraine, no neck pain to suggest need for neck imaging. Would hold off further evaluation overnight pending neurology evaluation tomorrow. I am unclear if/how this is related to her main complaint which appears more con sistent with trigeminal neuralgia. Left sided facial pain - suspect trigeminal neuralgia, would hold off typical medications to treat this pending evaluation by neurology PG Care Time/CCT Total # of Minutes Spent Total Time Spent with Patient: Total time spent is greater than 50% in coordination of care (as documented) at patient's floor/unit and/or counseling patient: Coding [place] [address] INT INP/OBS CARE 3/75MIN Patient Type Established Medical Decision Making High Complexity Diagnoses Stroke-like symptoms R29.90 Type 2 diabetes mellitus without complication, without long-term current use of insulin E11.9 Diabetes mellitus usp insulin use: without usp use Anxiety F41.9 Hypothyroidism E03.9 (2) DM w/o complication type II Diabetes mellitus intermodal customer service insulin use: without usp use Qualified C ode(s): E11.9 - Type 2 diabetes mellitus without complications
[2023-12-21] MEDS ORDERED: GLUCOSE 10 TAB/TUBE PO PRN (15:30)
[2023-12-21] MEDS ORDERED: DEXTROSE 50% 50 ML SYRINGE IV PRN (15:30)
[2023-12-21] MEDS ORDERED: GLUCOSE 40% GEL 15 GM TUBE PO PRN (15:30)
[2023-12-21] MEDS ORDERED: GLUCAGON FOR INJ 1 MG VIAL SQ PRN (15:30)
[2023-12-21] MEDS ORDERED: CARBOHYDRATES FOR HYPOGLYCEMIA PO PRN (15:30)
[2023-12-21] MEDS: LORazepam 1 MG/1 ML SYR ED Inj Use IV STA (15:42)
[2023-12-21] MEDS: ATORVASTATIN 40 MG TAB PO STA (15:43)
[2023-12-21] MEDS: ACETAMINOPHEN 500 MG TAB PO STA (15:43)
--- NOTE | 2023-12-21 16:28 | Magnetic Resonance Report ---
MR brain wo con CLINICAL HISTORY: left arm and leg weakness ?stroke TECHNIQUE: Multiplanar and multisequence MR images of the brain were obtained without intravenous con trast. Comparison: Comparison is made to MRI brain 12/29/2022 FINDINGS: No abnormal restricted diffusion is identified. Foci of T2 and FLAIR hyperintensity are noted in the paraventricular areas consistent with chronic small vessel ischemic disease. Ex vacuo ventriculomegal y and sulcal enlargement is noted compatible with diffuse volume loss. No mass is seen. There is no m ass effect or midline shift. There is no evidence of acute intraparenchymal hemorrhage. No extra axia l fluid collections are seen. The corpus callosum, pituitary gland, and cerebellar tonsils appear agnes ssly unremarkable. Flow voids of the major intracranial arterial vessels are identified. A mucous retention cyst is in t he left maxillary sinus. IMPRESSION: Chronic volume loss and age related white matter changes without evidence of acute abnormality. No ev idence of infarct. ACT 112: Negative or not required by law. Electronically signed by: Choco Mccarthy M.D. 12/21/2023 4:27 PM
[2023-12-21] MEDS ORDERED: PHARMACIST DISCHARGE MED REC CONSULT PRN (16:46)
[2023-12-21] MEDS: INSULIN ASPART PER UNIT CHARGE SC SCH (17:55)
[2023-12-21] MEDS: ACETAMINOPHEN 325 MG TAB PO PRN (21:45)
[2023-12-21] MEDS ORDERED: LORazepam 0.5 MG TAB PO PRN (22:16)
[2023-12-21] MEDS ORDERED: ARTIFICIAL TEARS OP PRN (22:38)
[2023-12-22] MEDS: KETOROLAC TROMETHAMINE 15 MG/ML VIAL IV ONE (06:12)
[2023-12-22 06:44] LABS: Basophils # (auto) 0.04 K/uL (0.00-0.20); Basophils % (auto) 0.6 %; Eosinophils # (auto) 0.36 K/uL (0.00-0.50); Eosinophils % (auto) 5.4 %; Hematocrit (blood only) 42.5 % (37.0-47.0); Hemoglobin 14.2 g/dl (12.0-16.0); Immature Granulocytes # (auto) 0.02 K/uL (0.01-0.20); Immature Granulocytes % (auto) 0.3 %; Lymphocytes # (auto) 2.45 K/uL (1.20-3.40); Lymphocytes % (auto) 36.7 %; Mean Corpuscular Hemoglobin 30.8 pg (25.0-34.0); Mean Corpuscular Hgb Conc 33.4 g/dL (32.0-36.0); Mean Corpuscular Volume 92.2 fL (80.0-100.0); Mean Platelet Volume 9.5 fL (9.4-12.4); Monocytes % (auto) 7.5 %; Neutrophils # (auto) 3.31 K/uL (1.40-6.50); Neutrophils % (auto) 49.5 %; Platelet Count 230 K/uL (130-400); RDW Coefficient of Variation 13.3 % (11.5-14.5); Red Blood Count 4.61 M/uL (4.20-5.40); White Blood Count 6.68 K/ul (4.8-10.8)
[2023-12-22 07:05] LABS: Alanine Aminotransferase 28 U/L (7-52); Albumin Globulin Ratio 1.5 (0.9-2); Albumin Level 4.1 gm/dl (3.4-5.0); Alkaline Phosphatase 73 U/L (34-104); Anion Gap 6 (3-11); Aspartate Aminotransferase 22 U/L (13-39); BUN Creatinine Ratio 18.4 (10-20); Bilirubin,Total 1.1 mg/dl (0.2-1.0); Blood Urea Nitrogen 14 mg/dl (6-23); Carbon Dioxide 28 mmol/L (21-32); Chloride 108 mmol/L (98-107); Chol HDL Ratio 3.8 (0-5); Cholesterol 168 mg/dl (0-200); Creatinine Clr Calc Pharmacy 57.1 ml/min; Est GFR (African American) 85.9 ml/min; Est GFR (Non-African American) 74.1 ml/min; Globulin 2.7 gm/dl (2.5-4.0); Glucose 136 mg/dl (70-99(Fasting)); HDL Cholesterol 44 mg/dl; LDL Cholesterol Calculated 98 mg/dl; Potassium 3.9 mmol/L (3.5-5.1); Sodium 142 mmol/L (136-145); Total Protein 6.8 gm/dl (6.0-8.3); Triglycerides 130 mg/dl (0-150); VLDL Cholesterol 26 mg/dl (0-30)
[2023-12-22 07:09] LABS: Prothrombin Time 11.3 Seconds (9.0-12.0)
[2023-12-22 08:15] VITALS: TEMP 98.2
[2023-12-22 08:24] LABS: Estimated Average Glucose 192 mg/dl; Hemoglobin A1C 8.3 % (4.5-5.6)
[2023-12-22] MEDS: ASPIRIN 81 MG ECTAB PO SCH (08:53)
[2023-12-22] MEDS: FAMOTIDINE 40 MG TABLET PO SCH (08:53)
--- NOTE | 2023-12-22 08:56 | Neurology Consultation ---
Date of Consultation December 22, 2023 Assessment & Plan (1) Atypical face pain: (2) Acute left-sided weakness: (3) Idiopathic polyneuropathy: (4) Memory loss: (5) Tremor: Plan This patient has a several day history of unusual left zoroastrianism neuralgic pain, consistent with a trigeminal neuralgia but it is on the surface and triggered by touch. It has been progressive over several days. Although the patient did not notice (because she was focused on her face pain) she was noticed to have some left-sided weakness. This weakness clinically is variable, has a giveaway quality, and is not necessarily consistent with a pathologic weakness. MRI of the brain shows no acute stroke and no change from previous films. CT angiography shows no abnormal blood vessels. 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 This is likely due to her history of diabetes. She has mild cognitive impairment likely mixed aging and vascular. She is stable off of medication. She was on low-dose donepezil in the past. Patient has a history of mild essential tremor which is improved and stable currently. Recommendations: 1. Consider MRI of the brain with contrast as well as MR angiography (no contrast necessary) of the head to look for anything that could be irritating the left trigeminal nerve. This could be done as an outpatient. 2. Consider ESR, Lyme antibody titer, CRP, CK 3. Physical therapy consult for evaluation and treatment 4. Consider prednisone taper for atypical facial pain (60, 50, 40, 30, 20, 10, off) 5. Continue 81 mg aspirin daily 6. Follow-up with neurology (Mary Kate Ye PA-C or Dr. Michel) soon Overall, I spent a total 75 minutes with this case including review of records, review of CT and MRI films, direct evaluation the patient at bedside, report generation, and discussion of the case with the patient and RN at bedside, and Dr. Hernandez, including differential diagnosis and treatment options. History of Present Illness Reason for Consultation: Patient is an 78-year-old, who I was asked to see at the request of Dr. Cai, for neurologic consultation regarding acute left-sided weakness and other issues Requesting Physician: Dr. Cai Attending Physician: Nicholas Hernandez MD History of Present Illness I first saw this patient in November 2018 when she was admitted with some expressive aphasia and some right-sided weakness. CT scan of the head, CT angiography of the head and neck, and echocardiogram were unremarkable. MRI of the brain showed old left cerebellar lacunar and some old small vessel ischemic disease but no acute stroke. She was discharged on 81 mg aspirin and atorvastatin 40 mg a day. There was an issue of a possible seizure but this was more of a tremor and levetiracetam was not continued. In the fall 2018 follow-up showed no further events and a mild tremor not requiring treatment. Patient saw Dr. Michel in November 2022 for memory loss. There is a mild cognitive impairment likely mixed aging and vascular and donepezil was initiated. A repeat MRI of the brain showed no change from 2019 (old small vessel ischemic disease and generalized atrophy. She was seen last in clinic in March 2023. She was stable with no new symptoms. She had EMG and nerve conduction studies of the legs (because of some numbness and tingling) in October 2023, which revealed a mild underlying polyneuropathy. There was no lumbosacral radicular On December 18, the patient started having some left zoroastrianism area sharp shooting electric shocklike pains coming and going lasting a second or 2 at a time. It was around the left zoroastrianism area radiating to the cheek. He did not involve the ear, the forehead, or the jaw. Nothing triggered it but it was sensitive to touch. The pain became more frequent (same intensity and duration) on December 19 occurring on and off all day long. Again there was no specific triggers been Tylenol did not help. She had no other head pain. She woke up on the morning of December 20 at 0500 with worse shock sensations in her left zoroastrianism area. They were near continuous. She went to her PCP, Dr. Nancy Mullins, who noted left-sided weakness and sent her to the emergency room. She arrived to the [facility] emergency room at 1257 on December 20 with a temperature of 36.7, pulse 88 and regular, respiratory rate 16, blood pressure 154/93, and O2 saturation 94%. She was noted to have 4/5 strength in left arm and 3/5 strength in the left leg. There were no other focal abnormalities, meningeal signs, or encephalopathy. CBC and CHEM profile were unremarkable except for glucose of 125. CT scan of the head was unremarkable. CT angiography of the head and neck showed no vascular anomalies or stenoses. MRI of the brain showed no acute stroke but there was moderate old small vessel ischemic disease and mild generalized atrophy. I reviewed these films. Today she has had no further events and feels a little bit better. She still has some sharp electric pain in the left face. Repeat laboratory studies showed a normal CBC and CHEM profile except for glucose of 136. Total cholesterol is 168 triglycerides 130. Hemoglobin A1c is pending. She denies neck pain or headaches. She is tender on the left side of her head by the zoroastrianism. She has no balance issues and no incontinence of urine (except occasionally with cough, laugh, or sneeze). She denies speech issues. She knows she has short-term memory problems but her memory has been stable. Allergies Allergy/AdvReac Type Severity Reaction Status Date / Time No Known Allergies Allergy Unverified 10/09/21 11:10 Home Medications Medication Instructions Recorded Confirmed Type lorazepam 0.5 mg tablet (Ativan) 0.5 mg PO Q6H PRN Anxiety 03/02/18 12/21/23 History propylene glycol 0.6 % eye drops 1 drp ophthalmic (eye) BID PRN 12/29/18 12/21/23 History (Systane Complete) dryness sodium chloride 5 % eye ointment 1 applic OPB HS 12/29/18 12/21/23 History (Kerrie 128) aspirin 81 mg tablet,delayed 81 mg PO QAM 11/30/20 12/21/23 History release (Vicente Low Dose Aspirin) cholecalciferol (vitamin D3) 25 1,000 mcg PO QAM 11/30/20 12/21/23 History mcg (1,000 unit) capsule (Vitamin D3) famotidine 40 mg tablet (Pepcid) 40 mg PO QAM 11/30/20 12/21/23 History albuterol sulfate 90 mcg/actuation 2 inh inhalation Q6H PRN Shortness 10/09/21 12/21/23 History aerosol inhaler (Ventolin HFA) Of Breath prucalopride 2 mg tablet 2 mg PO QAM 10/09/21 12/21/23 History (Motegrity) syringe with needle, safety 1 mL #3 ea 03/10/23 12/21/23 Rx 25 gauge x 5/8" dulaglutide 0.75 mg/0.5 mL 0.75 mg subcut WK 12/21/23 12/21/23 History subcutaneous pen injector (Trulicity) empagliflozin 25 mg tablet 25 mg PO QAM 12/21/23 12/21/23 History (Jardiance) Patient History Medical History Sepsis RELATED TO KIDNEY STONES Endometriosis Bulging disc NO CURRENT PROBLEMS Sciatica Osteoarthritis Kidney stones Fatty liver GERD (gastroesophageal reflux disease) Diabetes mellitus, type 2 Hypothyroidism Anxiety Tachycardia "CAUSED BY MEDICATION" NO LONGER A PROBLEM Bronchitis INHALER USED WITH BRONCHITIS Surgical History History of bilateral tubal ligation History of dilatation and curettage History of hysterectomy History of repair of rotator cuff RT History of cystoscopy WITH STENT INSERTIONS History of lithotripsy History of esophagogastroduodenoscopy (EGD) History of colonoscopy History of cholecystectomy History of appendectomy History of tooth extraction History of cataract surgery RT/LEFT History of cardiac cath DONE 2/2 + STRESS TEST, NO SIGNIFICANT CAD PER CATH Family History Grandmother Family history of diabetes mellitus Mother , age 59 of leukemia Leukemia Father , age 48 of an MS Myocardial infarction Social History Smoking Status: Never smoker Second Hand Exposure: No; Do You Dip or Chew Tobacco: No; Hx Alcohol Use: No Hx Substance Use: No Preferred Language: Tamazight Communication Ability: Effective Visual Impairment: No Limitations Collision Repairer Required: No Beliefs That Will Affect Care: None marital status: / Current Living Situation: Alone current occupational status: retired Other Information That Helps Us Care for You: No other: Did secretarial jobs retiring at age 60. Feels Safe at Home: Yes Safety Concerns: Feels Safe At This Time Assistive Devices: None Review of Systems Constitutional: no fever, no fatigue and no weakness Eyes: no diplopia, no eye pain and no worsening vision Ear, Nose, Mouth, Throat: no ear pain, no tinnitus, no hearing loss, no dizziness, no snoring, no hoarseness and no dysphagia Respiratory: no cough and no dyspnea Cardiovascular: no chest pain, no palpitations and no lightheadedness Gastrointestinal: no abdominal pain, no nausea and no vomiting Genitourinary: no dysuria, no urinary frequency and no urinary incontinence Musculoskeletal: no back pain, no neck pain, no radicular pain, no joint pain and no myalgia Integumentary: no rash and no lesions Neurologic: + localized weakness, + headache(s) and + memory loss; no gait abn ormality, no generalized weakness, no tingling, no numbness, no tremor(s), no abnormal movements, no abnormal speech and no confusion Psychiatric: no depression, no irritability, no anxiety, no difficulty concentrating, no confusion and no hallucinations Endocrine: no fatigue and no flushing Hematologic / Lymphatic: no easy bleeding and no easy bruising Allergy / Immunological: no urticaria and no problem reported Exam (Neuro) Physical Exam: The patient is right-handed. The patient is awake, alert, and attentive. Speech is normal without any aphasia or dysarthria. Mentation and thought processes are intact, with full orientation and normal fund of knowledge. Mood and affect are normal and appropriate. Appearance and grooming are normal. Short-term memory is Long-term memory seems intact. She has a normal memory to conversation. Pupils are 3 mm bilaterally and reactive to light. Extraocular eye muscles are intact without nystagmus. However, the patient has some disconjugate gaze with a mild left esotropia (she says her eyes have been unable to move together her entire life). Visual acuity and visual barker seem normal grossly to confrontation. There are no deficits to sensation in the face in all 3 distributions of the fifth cranial nerve bilaterally. Corneal reflexes are positive bilaterally. Facial strength and symmetry was normal bilaterally. Hearing seems intact grossly to voice and finger rub bilaterally. Palate moves well without asymmetry. There is normal sternocleidomastoid and trapezius strength bilaterally. Tongue is midline with good strength bilaterally. Patient is tender to palpation over the left zoroastrianism. This creates the electric shocks. Neck has a full range of motion without discomfort. There are no cervical bruits bilaterally. There are no cranial or ocular bruits. Heart is without murmur. There is a regular rhythm and rate. Cervical, thoracic, and lumbar spine are nontender to palpation. Gait was not tested but stance sitting up in bed is normal With outstretched arms there is no drift. The left arm will lower at the shoulder (previous rotator cuff surgery problems) but there is no turning of the hand. There are no resting, postural, or action tremors. There is no ataxia with finger to nose testing. There is good facility in the hands. No other abnormal involuntary movements are noted. Motor strength is 5/5 diffusely in the right upper EXTR including deltoids, biceps, triceps, brachioradialis, wrist flexors and extensors, sales support coordinator, and intrinsic hand muscles. Motor strength is 5/5 diffusely in the right lower extremity including hip flexors, quadriceps, hamstrings, gastrocnemius, tibialis anterior, tibialis posterior, and Peroneii muscles. The left arm and leg are essentially normal with initial strength. She has giveaway weakness in the limb proximally and distally. I have not convinced that there is true pathologic weakness in these limbs. The limbs have good tone without rigidity or spasticity. There is no atrophy noted in the muscles. Muscle bulk is normal, there is no tenderness to palpation, no myotonia to percussion, and no fasciculations seen. Sensory examination is intact to touch and pin throughout all 4 limbs diffusely. Reflexes are 1/4 in the biceps, triceps, brachioradialis, and quadriceps tendons bilaterally. Achilles tendon reflexes are absent bilaterally. Toes are downgoing with plantar stimulation bilaterally. Peripheral pulses are present and of normal quality distally in all 4 limbs. There is no peripheral edema noted in the limbs. Results & Data Vital Signs (Past 12 Hours) Vital Signs Temp Pulse Resp BP Pulse Ox O2 Del Method 12/22/23 08:00 36.8 C 88 18 124/71 96 Room Air 12/22/23 04:20 36.6 C 78 18 133/81 95 Room Air 12/21/23 23:03 36.5 C 81 18 134/86 94 Room Air PG Care Time/CCT Total # of Minutes Spent Total Time Spent with Patient: Total time spent is greater than 50% in coordination of care (as documented) at patient's floor/unit and/or counseling patient: Coding Level of Care Code 80003 INT INP/OBS CARE 3/75MIN Diagnoses Atypical face pain G50.1 Acute left-sided weakness R53.1 Idiopathic polyneuropathy G60.9 Memory loss R41.3 Tremor R25.1 Time Spent (min) 75
--- NOTE | 2023-12-22 10:18 | XCELERA ---
[id number] [id number]
[2023-12-22 10:21] LABS: C Reactive Protein < 0.50 mg/dl (0-0.5); Creatine Kinase 44 U/L (26-192)
[2023-12-22 11:51] VITALS: BP 131/82; PULSE 78; RESP 20; O2SAT 97
[2023-12-22] MEDS ORDERED: STROKE PATIENT DISCHARGE STA (12:45)
--- NOTE | 2023-12-22 12:49 | Discharge Summary ---
Discharge Summary Date of Service December 22, 2023 Principal Dx & Hospital Course #1 = Principal Diagnosis (1) Stroke-like symptoms: No acute CVA seen on brain MRI scan. Appreciate neurology consultation and recommendations. There is some question whether she has a left trigeminal neuralgia. Labs are pending including ESR, CRP, CK, and Lyme titers. She will be discharged on a tapering dose of prednisone. She will follow-up with neurology in the office in 1 week. (2) DM w/o complication type II: ADA diet. Jardiance will be resumed at discharge. Sliding scale coverage while hospitalized (3) Anxiety: Stable. Continue as needed Ativan (4) Hypothyroidism: Stable. Continue levothyroxine Plan Home today, December 21, on a prednisone tapering dose. Follow-up with neurology in 1 week Admission HPI Per Admitting Provider Louise is an 78-year-old female with a past medical history significant for previous TIA, mild vascular dementia, DM type II, and idiopathic polyneuropathy who presented to the [facility] ED on 12/21/2023 from her PCPs office due to concerns for possible strokelike symptoms. Per the ED staff, the patient initially developed left facial nerve pain approximately 3 days ago. She was seen in her PCP for the symptoms this morning and was thought to have associated left-sided weakness. She was made a stroke alert on arrival. Was noted to be mildly hypertensive at 154/93, tachycardic at 97, but otherwise stable. Labs including CBC and CMP were unremarkable. CT of the head and brain without contrast and CTA of the head/neck were read as negative for acute findings. Prior to admission the patient was given a full dose aspirin. Patient was sitting in bed in no acute distress at time of exam with her son bedside, history was obtained from both. Patient states that approximately 3 days ago she started to develop intermittent shocking pain along the left cheek, just inferior to the left eye. Symptoms were exacerbated with palpation of the area. Was using Tylenol for pain with mild improvement but no resolution. States that she was looking her symptoms upon monitoring and thought could be due to trigeminal neuralgia which is why she initially scheduled her PCP appointment today. She states that after ongoing neurologic testing at the PCP office they were concerned with her left upper and lower extremity weakness which is why she was sent to the ED. Still having the intermittent left facial pain, was unsure if she felt weakness in her left side extremities or not. Denies recent changes in vision, hearing, taste, smell, paresthesias in any other body, chest pain, abdominal pain, nausea/vomiting, urinary symptoms,, lower extremity swelling, and recent trauma. She wishes to be a conditional code. She would not want CPR or defibrillation in the event of cardiac arrest. In the event of respiratory failure she would want a trial of intubation mechanical ventilation. She would want her son to make medical decisions for her if she cannot make them herself. Please refer to Dr. Cai's attestation for any changes to the treatment plan Discharge Exam General-alert and oriented x3, no fever, no chills HEENT-head atraumatic and normocephalic, pupils equal and reactive to light, extraocular muscles intact Neck-no lymphadenopathy or thyromegaly, trachea midline Chest-clear to auscultation. No rales, wheezing or rhonchi Cardiac-regular rate and rhythm, normal S1 and S2 Abdomen-normal bowel sounds, no hepatosplenomegaly Extremities-no cyanosis, clubbing, or edema Neuro-cranial nerves II through XII intact, motor and sensory function within normal limits, strength symmetrical, no focal deficits Psych-normal affect, normal mood Discharge Plan Discharge Items Patient Disposition: Home - Self-Care Reason For Visit: STROKE ALERT Discharge Diagnosis: Strokelike symptoms, possible left trigeminal neuralgia Activity: Resume your previous activity Non-emergency contact: Primary Care Provider and Neurologist Call non-emergency contact if: your symptoms worsen Follow-up/Referrals: Nancy Mullins MD [Primary Care Provider] - Diet: Carb Consistent or DM2 Addtl Attending Provider Instructions: Take prednisone in a tapering dose fashion as directed. A prescription was sent to [facility] in [place]. Follow-up with neurology in 1 week Pending Studies at Discharge: Yes Studies:: Lab studies include ESR, CRP, CK, Lyme profile Stand-Alone Forms: My [employer], Smoking Cessation Medications and DC Order Prescriptions: New prednisone 10 mg tablet See Rx Instructions .ROUTE .COMPLEX Qty: 21 0RF Rx Instructions: 10 mg orally take 6 tablets on the first day, 5 tablets on the second day, 4 tablets on the third day, 3 tablets on the fourth day, 2 tablets on the fifth day, 1 tablet on the sixth day, then stop. You do not have to take the tablets all at once, you can spread them out each day Continued (DME) syringe with needle, safety 1 mL 25 gauge x 5/8" syringe See Rx Instructions .ROUTE .MEDSUPPLY Qty: 3 3RF Rx Instructions: As directed sodium chloride [Kerrie 128] 5 % ointment 1 applic OPB HS Systane Complete 0.6 % Drops 1 drp OPHTHALMIC (EYE) BID PRN (Reason: dryness) lorazepam [Ativan] 0.5 mg Tablet 0.5 mg PO Q6H PRN (Reason: Anxiety) albuterol sulfate [Ventolin HFA] 90 mcg/actuation HFA aerosol inhaler 2 inh INHALATION Q6H PRN (Reason: Shortness Of Breath) Motegrity 2 mg tablet 2 mg PO QAM famotidine [Pepcid] 40 mg Tablet 40 mg PO QAM cholecalciferol (vitamin D3) [Vitamin D3] 25 mcg (1,000 unit) capsule 1,000 mcg PO QAM aspirin [Vicente Low Dose Aspirin] 81 mg tablet,delayed release (DR/EC) 81 mg PO QAM Rx Instructions: purchase over the counter; for prevention of stroke/TIA Jardiance 25 mg tablet 25 mg PO QAM Trulicity 0.75 mg/0.5 mL pen injector 0.75 mg SUBCUT WK Discharge Orders: Discharge Order (Routine); Ordered 12/22/23 Ordered By: Nicholas Hernandez Admission Data Admit Date/Time: 12/21/23 14:49 Attending Provider: Nicholas Hernandez Admit Provider: Jeffy Cai Primary Care Provider: Nancy Mullins Other Providers: Jeffy Cai Hospital Stay Data Consultations 12/21/23 14:41 ED Decision to Admit Stat Diagnostic Imagining Performed 12/21/23 12:46 CT angio head w con Stat CT angio neck with con Stat CT head/brain wo con Stat 12/21/23 14:11 MRI Brain [MR brain wo con] Stat Pending Results Patient Have Any Pending Studies at Discharge: Yes Discharge Instructions Given to Patient (Per Discharging Provider) Take prednisone in a tapering dose fashion as directed. A prescription was sent to [facility] in [place]. Follow-up with neurology in 1 week Total Time Total Time Spent Total Time Spent (In Minutes): 45 minutes Coding Level of Care Code 75436 INP/OBS DISCH >30 MIN Diagnoses Stroke-like symptoms R29.90 Type 2 diabetes mellitus without complication, without long-term current use of insulin E11.9 Diabetes mellitus termite exterminator helper insulin use: without fci use Anxiety F41.9 Hypothyroidism E03.9
[2023-12-22] MEDS: oxyCODONE HCL IR 5 MG TAB (IMMEDIATE RELEASE) PO STA (14:03)
[2023-12-22] MEDS ORDERED: SODIUM CHLORIDE 5% OP SOLN 15 ML BTL OP SCH (21:00)
== END 2023-12-22 15:32 | disposition home health service (06) | DRG 74 ==
LOC: ED 12:51 → INTOOBSV 14:49 → SUATTDRO 14:49 → EDINP 14:49 → 2E 16:14